=== PATIENT | female | born 1925 | race Caucasian/White ===

== ENCOUNTER 2016-05-04 09:41 | Inpatient (IN) ==
[2016-05-04 10:48] LABS: Mean Cell Volume 92.5 fL (80.0-100.0); Mean Corpuscular HGB Conc 32.8 g/dL (31.0-36.0); Mean Corpuscular Hemoglobin 30.3 pg (26.0-34.0); Platelet Count 136 K/mcL (140-440); RBC 2.95 M/mcL (4.00-5.20)
--- NOTE | 2016-05-04 11:01 | Emergency Department Note ---
Weakness HPI - General Chief complaint: Weakness Stated complaint: swelling, increase wt gain Time Seen by Provider: 05/04/16 09:53 Source: patient Mode of arrival: wheelchair Limitations: no limitations - History of Present Illness HPI Narrative: 89-year-old female with a history of CHF and treated outpatient by Dr. Briceño , with failed treatment. Patient continued having increased weight gain and weakness. He has a history of aortic stenosis with valve replacement in 2009. History of stage III, Ckd, atrial fibrillation and was on Coumadin. The INR 1 [id number]. She became anemic. He has switched her to Eliquis, that medication was also stopped after putting in a PICC line. s He had been given IV Lasix and Zaroxolyn by Dr. Briceño. He has felt now that she is off her Coumadin and Eliquis that this would be a good time to do a poor oh effusion tap. Admitted, and followed by an echo. The Key[facility]'s phone report over to me.Patient states she's been having increased weakness over the past 2 weeks. - Related Data Home Medications Medication Instructions Recorded Confirmed Carvedilol [Coreg] 6.75 mg PO HS 03/23/16 05/04/16 Febuxostat [Uloric] 40 mg PO DAILY 03/23/16 05/04/16 Omeprazole 20 mg PO DAILY 03/23/16 05/04/16 Spironolactone [Aldactone] 50 mg PO DAILY 03/23/16 05/04/16 Colchicine [Colcrys] 0.6 mg PO DAILY PRN 04/30/16 05/04/16 Ferrous Sulfate [Iron] 325 mg PO BID 04/30/16 05/04/16 Levothyroxine [Synthroid] 50 mcg PO DAILY 04/30/16 05/04/16 Magnesium Oxide [Magnesium] 250 mg PO WEEKLY 04/30/16 05/04/16 Potassium Citrate [Urocit-K] 2.5 meq PO DAILY 04/30/16 05/04/16 Vitamin D3 1,000 unit PO DAILY 04/30/16 05/04/16 Cyanocobalamin (Vitamin B-12) 1,000 mcg PO DAILY 05/04/16 05/04/16 [Vitamin B12] Metolazone [Zaroxolyn] 2.5 mg PO DAILY 05/04/16 05/04/16 Previous Rx's Medication Instructions Recorded HYDROcodone/APAP 5/325MG [[place] 1 tab PO Q4HP PRN #14 tablet 03/23/16 5/325Mg] Allergies Allergy/AdvReac Type Severity Reaction Status Date / Time fentanyl Allergy Intermediate Rash Verified 05/04/16 19:56 Sulfa (Sulfonamide Allergy Intermediate Hives Verified 05/04/16 19:56 Antibiotics) meperidine [From Demerol] AdvReac Intermediate Hives Verified 04/30/16 16:37 Review of Systems All systems ED: reviewed and negative except as stated. Constitutional: Denies: fever Eyes: Denies: eye pain ENT ED: Denies: ear pain Cardiovascular: Denies: chest pain, palpitations, dyspnea on exertion Respiratory: Denies: cough, dyspnea Gastrointestinal: Denies: abdominal pain Genitourinary: Denies: urgency, dysuria Musculoskeletal: Denies: as per HPI Integumentary: Denies: rash Neurological: Denies: headache Psychiatric: Denies: anxiety Endocrine: Denies: fatigue Hematological/Lymphatic: Denies: easy bleeding Allergic/Immunologic: Denies: facial swelling Past Medical History - Past Medical History Medical history: Reports: atrial fibrillation, hypertension, valvular heart disease, other (maynor' esophagus, artery stenosis, diverticulitis hyperlipidemia) Surgical history ED: Reports: appendectomy, , cholecystectomy, hysterectomy, other (valve replacement) Family history: Reports: cancer (mother lung), CVA/Stroke - Social History smoking status: Never smoker Alcohol use: Reports: None Drug use: Reports: none Physical Exam - General Limitations: no limitations General appearance: alert - Head Head exam: atraumatic - Eye Eye exam: Present: normal appearance, PERRL - ENT ENT exam: normal exam, normal oropharynx - Neck Neck exam: Present: normal inspection, full ROM. Absent: trachea midline - Chest Chest inspection: Present: normal inspection. Absent: symmetric chest wall rise - Respiratory Respiratory exam: Present: normal lung sounds bilaterally. Absent: respiratory distress, wheezes - Cardiovascular Cardiovascular exam: Present: regular rate. Absent: normal rhythm, bradycardia , tachycardia - Abdominal Exam Abdominal exam: Present: soft. Absent: distention, tenderness - Extremities Exam Extremities exam: Present: normal inspection. Absent: full ROM - Back Exam Back exam: Present: normal inspection. Absent: full ROM - Neurological Exam Neurological exam: Present: alert, oriented X3 - Psychiatric Psychiatric exam: Present: normal affect, normal mood - Skin Skin exam: Present: warm Course Vital Signs Temperature 97.6 F 05/04/16 09:45 Pulse Rate 80 05/04/16 09:45 Respiratory Rate 16 05/04/16 09:45 Blood Pressure 116/60 05/04/16 09:45 Pulse Oximetry (%) 96 05/04/16 09:45 Temperature 97.5 F L 05/04/16 19:45 Pulse Rate 84 05/04/16 18:47 Respiratory Rate 20 05/04/16 19:45 Blood Pressure 126/74 05/04/16 19:45 Pulse Oximetry (%) 96 05/04/16 19:45 Weakness - Lab Data Result diagrams: 05/04/16 10:02 05/04/16 19:53 Lab Results 05/04/16 05/04/16 05/04/16 Range/Units 10:02 10:02 10:02 WBC 6.0 (4.5-11.0) K/mcL RBC 2.95 L (4.00-5.20) M/mcL Hgb 8.9 L (12.0-15.0) g/dL Hct 27.3 L (36.0-48.0) % POC Hct 30.0 L (36.0-48.0) % MCV 92.5 (80.0-100.0) fL MCH 30.3 (26.0-34.0) pg MCHC 32.8 (31.0-36.0) g/dL RDW 14.0 (11.5-14.5) % Plt Count 136 L (140-440) K/mcL MPV 10.6 H (7.4-10.4) fL Total Counted 100 Seg Neutrophils % 80 H (38-78) % Band Neutrophils % 1 (0-10) % Lymphocytes % 6 L (15-49) % Monocytes % (Manual) 12 H (1-9) % Eosinophils % (Manual) 1 (0-7) % Platelet Estimate Decreased (NORMAL) RBC Morphology Normal (NORMAL) POC PT 13.1 sec POC INR 1.1 (0.9-1.2) POC Sodium 138 (133-145) mmol/L POC Potassium 4.4 (3.3-5.1) mmol/L POC Chloride 94 L (96-108) mmol/L POC Total CO2 30 (22-30) mmol/L POC BUN 66 H (8-23) mg/dl POC Creatinine 2.7 H (0.6-1.1) mg/dl POC Glucose 122 H (70-105) mg/dL POC WB Ioniz Calcium 1.09 L (1.16-1.32) mmol/L Total Creatine Kinase (24-170) IU/L CK-MB (CK-2) (0-2.9) ng/ml Myoglobin (25-58) ng/ml Troponin T (0-0.03) ng/ml NT-Pro-B Natriuret Pep 22794.0 H (0-450) pg/ml 05/04/16 05/04/16 05/04/16 Range/Units 10:02 10:02 16:15 WBC (4.5-11.0) K/mcL RBC (4.00-5.20) M/mcL Hgb (12.0-15.0) g/dL Hct (36.0-48.0) % POC Hct (36.0-48.0) % MCV (80.0-100.0) fL MCH (26.0-34.0) pg MCHC (31.0-36.0) g/dL RDW (11.5-14.5) % Plt Count (140-440) K/mcL MPV (7.4-10.4) fL Total Counted Seg Neutrophils % (38-78) % Band Neutrophils % (0-10) % Lymphocytes % (15-49) % Monocytes % (Manual) (1-9) % Eosinophils % (Manual) (0-7) % Platelet Estimate (NORMAL) RBC Morphology (NORMAL) POC PT sec POC INR (0.9-1.2) POC Sodium (133-145) mmol/L POC Potassium (3.3-5.1) mmol/L POC Chloride (96-108) mmol/L POC Total CO2 (22-30) mmol/L POC BUN (8-23) mg/dl POC Creatinine (0.6-1.1) mg/dl POC Glucose (70-105) mg/dL POC WB Ioniz Calcium (1.16-1.32) mmol/L Total Creatine Kinase 86 (24-170) IU/L CK-MB (CK-2) 3.5 H (0-2.9) ng/ml Myoglobin 257 H (25-58) ng/ml Troponin T 0.04 H* 0.04 H* (0-0.03) ng/ml NT-Pro-B Natriuret Pep (0-450) pg/ml Disposition Clinical Impression: Pleural effusion, CHF (congestive heart failure) Disposition: Xfer As Inpt ([facility]) Condition: Fair
[2016-05-04 11:10] LABS: Creatine Kinase MB 3.5 ng/ml (0-2.9); Myoglobin 257 ng/ml (25-58)
[2016-05-04 11:12] LABS: Creatine Kinase 86 IU/L (24-170)
[2016-05-04] MEDS ORDERED: FUROSEMIDE 250 MG in 0.9 % SODIUM CHLORIDE 225 ML IV SCH (11:15)
[2016-05-04 11:16] LABS: Band Neutrophils % 1 % (0-10); Eosinophils % (Manual) 1 % (0-7); Lymphocytes % 6 % (15-49); Monocytes % (Manual) 12 % (1-9); Platelet Estimate DECREASED (NORMAL); RBC Morphology NORMAL (NORMAL); Segmented Neutrophils % 80 % (38-78)
--- NOTE | 2016-05-04 12:39 | XRay Report ---
CLINICAL INFORMATION: Shortness of breath - pleural effusion COMPARISON: 04/30/2016. FINDINGS: Marked cardiomegaly is unchanged. Mediastinum is unremarkable. Right PICC line tip overlies the SVC right atrial junction in stable satisfactory position. Mediastinum is normal. Pulmonary vessels are now mildly distended and there is minimal diffuse interstitial edema. No infiltrates. Minor bibasilar atelectasis noted. Moderate right pleural effusion has developed. There is only a small left pleural effusion IMPRESSION: 1. Mild CHF 2. Moderate right pleural effusion. Small left pleural effusion Interpreted and Authenticated by: Murphy Turpin 05/04/16
--- NOTE | 2016-05-04 15:54 | XRay Report ---
CLINICAL INFORMATION: Post right thoracentesis COMPARISON: Preprocedure two-view chest x-ray to 2016 1048 hours. FINDINGS: Moderate cardiomegaly is unchanged. Mediastinum is unremarkable. Pulmonary vessels have returned to normal and there is residual edema is no longer identified. Right pleural effusion is no longer apparent following thoracentesis. There is no pneumothorax or other complication. Lungs are clear IMPRESSION: Interval resolution CHF No residual right pleural effusion following thoracentesis. No complication Interpreted and Authenticated by: Murphy Turpin 05/04/16
--- NOTE | 2016-05-04 15:56 | Ultrasound Report ---
CLINICAL INFORMATION: Moderate size right pleural effusion TECHNIQUE: The procedure and risks including possibility of bleeding, infection and pneumothorax were explained to the patient. She understood and wished to proceed. With the patient in upright position, right pleural effusion was sonographically localized at the posterior right 10th intercostal space - posterior axillary line. The skin was marked, prepped and locally anesthetized the level the the parietal pleura using 1% lidocaine and a 25-gauge needle. An 18-gauge Yueh needle was then placed under sonographic guidance into the fluid. 750 cc of transudative pleural fluid was aspirated and discarded. No request for lab studies was received. Post procedure scanning shows only no residual pleural fluid. IMPRESSION: Successful right thoracentesis yielding 750 cc of simple appearing transudative pleural fluid. Postprocedure scanning shows no residual fluid. Patient tolerated procedure well Interpreted and Authenticated by: Murphy Turpin 05/04/16
--- NOTE | 2016-05-04 19:34 | Internal Med History&Physical ---
Medical - H&P: HPI Patient information: Note initiated : 05/04/16 at 7:28 pm Service Date, if different from initiated Date: [] Patient: Corrina Arce a 89 y/o F admitted on for swelling, increase wt gain. Chief Complaint: [] History of present illness: Ms. Arce is a 89 year old female with multiple medical comorbidites presents to the ER today from Dr Mary green for evaluation and treatment of generalized anasarca after failed outpatient treatment. I reviwed the note by Dr Hernandez, the patient notes that she has h/o intermittent anasarca, which responded to diuretics in the past. The patient notes that this episode started around [place], when she fell and had a vertebral fracture. The patients baseline weight is 172 lbs, and she has been progressively gaining weight, associated with edema, shortness of breath on exertion, and PND. The patient was treated with oral diuretics which did not help much. The patient. The patient has a baseline creat of approx 2.7, which seems to have remained stable, The initial plan it seems was to admit the patient to the [facility] hospital at the begining of the month, however due to lack of beds the patient had PICC line placed and IV lasix given. The patient it seems did not respond well to the lasix, and therefore was sent to [facility] ER for further management. In the ER she had right pleural effusion, which was drained by Radiology with good effect. The patient at presents feels better, but still has significant fatigue, edema. Denies any chest pain, palpitation, nausea or vomiting. The labs in the ER reviwed, anemia noted, creat of 2.6, electrolytes otherwise stable, EKG with IC RBBB, low voltage. Mild bump in trop to 0.04 x 2 stable, she has h/o clean coronaries in 2009 Echo last done in 2012, shows avr (procine) moderate to severe MR. I am not sure if she follows with a redevelopment manager, She was placed on the lasix drip in the ER. Pt has chr afib, not on anticoagulatino due to the fact that she bled from the picc line, will resume her anticoagulation as now the picc line site is clean. Will start first dose tomorrow, given recent procedure. - Constitutional Constitutional: Present: fatigue, weakness. Absent: fever(s) - EENT Eyes: Absent: blurry vision, change in vision Nose, mouth and throat: Absent: bleeding gums, disequilibrium, dizziness - Cardiovascular Cardiovascular: Present: dyspnea on exertion, irregular heart rhythm, leg edema , orthopnea, paroxysmal nocturnal dyspnea. Absent: chest pain, chest pain at rest, lightheadedness, palpatations, syncope - Respiratory Respiratory: Present: dyspnea, dyspnea on exertion. Absent: wheezing, chest congestion, excessive phlegm production - Gastrointestinal Gastrointestinal: Absent: abdominal pain, diarrhea, dyspepsia, dysphagia, hematemesis, hematochezia, melena, nausea, vomiting - Genitourinary Genitourinary: Present: urinary frequency. Absent: hematuria, urinary hesitancy , urinary incontinence, urinary urgency - Musculoskeletal Musculoskeletal: Present: arthralgias - Integumentary Integumentary: Present: bleeding lesions, unusual bruising. Absent: new lesions - Neurological Neurological: Absent: focal weakness, frequent falls, headache(s), syncope - Psychiatric Psychiatric: Absent: anxiety, confusion - Endocrine Endocrine: Absent: polydipsia, polyphagia, polyuria - Hematologic/Lymphatic Hematologic/Lymphatic: Present: easy bleeding, easy bruising - Allergic/Immunologic Allergic/Immunologic: Absent: uticaria, wheezing Medical - H&P: PMH Medical history: Aortic stenosis s/p repair CHF Mitral reguritation Cirrhosis etiology? Portal hypertension CKD baseline creat 2.6 barrets esophagus carotid artery stenosis hld h/o TIA h/o Pulmonary hypertension Surgical history: h/o back surgery c section chlolecystectomy knee and shoulder s yrgery vaginal hystrectomy. Family history: reviewed and not pertinent Social history: non smoker, no etoh, recreational drugs lives by self, independent at baseline. Medical - H&P: Meds Home Medications Medication Instructions Recorded Confirmed Type Carvedilol [Coreg] 6.75 mg PO HS 03/23/16 05/04/16 History Febuxostat [Uloric] 40 mg PO DAILY 03/23/16 05/04/16 History Omeprazole 20 mg PO DAILY 03/23/16 05/04/16 History Spironolactone [Aldactone] 50 mg PO DAILY 03/23/16 05/04/16 History Colchicine [Colcrys] 0.6 mg PO DAILY PRN 04/30/16 05/04/16 History Ferrous Sulfate [Iron] 325 mg PO BID 04/30/16 05/04/16 History Levothyroxine [Synthroid] 50 mcg PO DAILY 04/30/16 05/04/16 History Magnesium Oxide [Magnesium] 250 mg PO WEEKLY 04/30/16 05/04/16 History Potassium Citrate [Urocit-K] 2.5 meq PO DAILY 04/30/16 05/04/16 History Vitamin D3 1,000 unit PO DAILY 04/30/16 05/04/16 History Cyanocobalamin (Vitamin B-12) 1,000 mcg PO DAILY 05/04/16 05/04/16 History [Vitamin B12] Metolazone [Zaroxolyn] 2.5 mg PO DAILY 05/04/16 05/04/16 History Allergies Allergy/AdvReac Type Severity Reaction Status Date / Time fentanyl Allergy Rash Verified 04/30/16 16:37 meperidine [From Demerol] AdvReac Intermediate Hives Verified 04/30/16 16:37 Sulfa (Sulfonamide AdvReac Hives Verified 04/30/16 16:37 Antibiotics) Medical - H&P: Exam - Constitutional Vitals: Temp Pulse Resp BP Pulse Ox 97.6 F 84 21 113/56 96 05/04/16 09:45 05/04/16 18:47 05/04/16 18:47 05/04/16 18:47 05/04/16 18:47 General appearance: no acute distress, obese - Head Head exam: Present: atraumatic, normal inspection, normocephalic - Eye Eye exam: Present: PERRL. Absent: periorbital swelling, periorbital tenderness , scleral icterus - ENT ENT exam: Present: mucous membranes moist, normal external ear exam - Neck Neck exam: Present: normal inspection - Respiratory Respiratory exam: Present: normal respiratory exam. Absent: accessory muscle use, respiratory distress, rhonchi, stridor, wheezes - Cardiovascular Cardiovascular exam: Present: irregular rhythm, +S1, +S2, systolic murmur - GI/Abdominal GI/Abdominal exam: Present: normal bowel sounds, soft, distended. Absent: guarding, tenderness - Expanded GI/Abdominal Exam GI/Abdominal exam: Present: ascites - Extremities Exam Extremities exam: Present: pedal edema (++++ upto hips and above.) - Back Exam Back exam: Present: normal inspection - Neurological Exam Neurological exam: Present: alert, CN II-XII intact, oriented X3. Absent: motor sensory deficit - Psychiatric Psychiatric exam: Present: normal affect, normal mood Medical - H&P: Reslt - Labs CBC & Chem 7: 05/04/16 10:02 Labs: Short CBC 05/04/16 Range/Units 10:02 WBC 6.0 (4.5-11.0) K/mcL Hgb 8.9 L (12.0-15.0) g/dL Hct 27.3 L (36.0-48.0) % Plt Count 136 L (140-440) K/mcL Cardiac Enzymes 05/04/16 05/04/16 05/04/16 Range/Units 10:02 10:02 16:15 Total Creatine Kinase 86 (24-170) IU/L CK-MB (CK-2) 3.5 H (0-2.9) ng/ml Troponin T 0.04 H* 0.04 H* (0-0.03) ng/ml Medical - H&P: A/P (1) Anasarca associated with disorder of kidney Current visit: Yes Status: Acute (2) Systolic congestive heart failure Current visit: Yes Status: Acute (3) Cirrhosis Current visit: Yes Status: Acute (4) Pulmonary hypertension Current visit: Yes Status: Acute (5) Anemia Current visit: Yes Status: Acute (6) Chronic kidney disease (CKD) Current visit: Yes Status: Acute (7) Atrial fibrillation Current visit: Yes Status: Acute - Narrative A/P Narrative: The patient presents today with anasarca, which is multifactorial in origin. At present seems cardiac in light of elevated bnp, but renal/ liver origin and secondary to pulmonary htn cannot be ruled out IV lasix 80mg TID, no need for lasix drip, given that the drip itself also has significant fluids and is given in normal saline. consider increasing dose of Lasix if needed. will use metolazone in conjunction with lasix if needed. Strict i/o monitoring, fluid restriction to 1500ml per day daily weight on Aldactone 50mg qd consider increasing aldactone to 100mg if hepatic origin suspected get tsh, echo, abdominal usg consider nephrology eval if renal function worsens or the patient does not respond to diuretics, not sure if the patient already has a redevelopment manager. resume coreg and eliquis for afib / chf, given that she is high risk for cva given her history of tia in the past. The patients troponin seems to be due to chf/ renal failure. no ekg chnages suggestive of NC nor does the patient have chest pain. monitor. DVT prophylaxis eliquis Diet low salt diet.
[2016-05-04] MEDS ORDERED: COLCHICINE 0.6 MG TABLET PO PRN (19:45)
[2016-05-04] MEDS ORDERED: HYDROcodone/APAP 5/325MG TABLET PO PRN (19:45)
[2016-05-04] MEDS ORDERED: ACETAMINOPHEN 325 MG TABLET PO PRN (19:45)
[2016-05-04] MEDS ORDERED: IPRATROPIUM/ALBUTEROL 3 ML AMPUL.NEB NEB PRN (19:45)
[2016-05-04] MEDS ORDERED: ONDANSETRON 4 MG/2 ML VIAL IV PRN (19:45)
[2016-05-04] MEDS ORDERED: BISACODYL 5 MG TABLET PO PRN (19:45)
[2016-05-04] MEDS ORDERED: NALOXONE HCL 0.4 MG/ML VIAL IV PRN (19:45)
[2016-05-04] MEDS ORDERED: CARVEDILOL 6.25 MG TABLET PO SCH (21:00)
[2016-05-04 21:25] LABS: Appearance,Urine HAZY; Bacteria,Urine 0 /hpf (0); Bilirubin,Urine NEG (NEG); Color,Urine YELLOW; Glucose,Urine (UA) NEGATIVE (NEG); Leukocyte Esterase,Urine 75 /uL (NEG); Mucus,Urine FEW /hpf (0); Nitrate,Urine NEG (NEG); Protein,Urine NEG (NEG); Urine Amorphous Crystals FEW /hpf (0); Urine Blood >=1.0 mg/dL (<0.03); Urine Hyaline Cast 20 /lpf (0-2); Urine RBC > 182 /hpf (0-1); Urine Squamous Epithelial Cell < 1 /hpf (0-4); Urine Transitional Epi Cells < 1 /hpf (0-2); Urine WBC 9 /hpf (0-4); Urobilinogen,Urine NEG (NEG)
[2016-05-04 21:27] LABS: Basophils # (Auto) 0 K/mcL (0.0-0.3); Basophils % (Auto) 0.3 % (0.0-2.0); Eosinophils # (Auto) 0.2 K/mcL (0.0-0.7); Eosinophils % (Auto) 2.4 % (0.0-7.0); Granulocytes % (Auto) 79.3 % (38.0-78.0); Lymphocytes # (Auto) 0.5 K/mcL (1.5-4.8); Lymphocytes % (Auto) 7.1 % (15.5-49.0); Mean Cell Volume 90.8 fL (80.0-100.0); Mean Corpuscular HGB Conc 34.1 g/dL (31.0-36.0); Monocytes # (Auto) 0.7 K/mcL (0.1-0.9); Monocytes % (Auto) 10.9 % (1.0-9.0); Platelet Count 119 K/mcL (140-440); RBC 2.93 M/mcL (4.00-5.20); Red Cell Distribution Width 13.5 % (11.5-14.5)
[2016-05-04 21:56] LABS: ALT/SGPT 11 U/l (0-40); Albumin 3.6 gm/dL (3.2-5.2); Albumin/Globulin Ratio 1.3 (1.0-2.3); Alkaline Phosphatase 73 U/L (39-117); Bilirubin,Direct 0.2 mg/dL (0.0-0.3); Blood Urea Nitrogen 67 mg/dl (8-23); Gamma Glutamyl Transpeptidase 16 U/L (5-36); Magnesium 2.9 mg/dL (1.6-2.5); Phosphorous 4.5 mg/dL (2.7-4.5); Uric Acid 11.6 mg/dL (2.5-8.0)
[2016-05-04] MEDS: FUROSEMIDE 100 MG/10 ML VIAL IV SCH (23:53)
[2016-05-05] MEDS: FUROSEMIDE 100 MG/10 ML VIAL IV SCH ×3 (06:19→21:02)
[2016-05-05 07:29] LABS: Basophils # (Auto) 0 K/mcL (0.0-0.3); Basophils % (Auto) 0.2 % (0.0-2.0); Eosinophils # (Auto) 0.2 K/mcL (0.0-0.7); Eosinophils % (Auto) 2.5 % (0.0-7.0); Granulocytes % (Auto) 81.2 % (38.0-78.0); Lymphocytes # (Auto) 0.4 K/mcL (1.5-4.8); Lymphocytes % (Auto) 6.4 % (15.5-49.0); Mean Cell Volume 93.8 fL (80.0-100.0); Mean Corpuscular HGB Conc 31.2 g/dL (31.0-36.0); Mean Corpuscular Hemoglobin 29.2 pg (26.0-34.0); Monocytes # (Auto) 0.6 K/mcL (0.1-0.9); Monocytes % (Auto) 9.7 % (1.0-9.0); Platelet Count 136 K/mcL (140-440); Red Cell Distribution Width 14.9 % (11.5-14.5)
[2016-05-05] MEDS: PANTOPRAZOLE 40 MG VIAL IV SCH (07:58)
[2016-05-05] MEDS: LEVOTHYROXINE 50 MCG TABLET PO SCH (07:58)
[2016-05-05 08:17] LABS: ALT/SGPT 11 U/l (0-40); Albumin 3.6 gm/dL (3.2-5.2); Albumin/Globulin Ratio 1.3 (1.0-2.3); Alkaline Phosphatase 77 U/L (39-117); Bilirubin,Direct 0.2 mg/dL (0.0-0.3); Blood Urea Nitrogen 69 mg/dl (8-23); Gamma Glutamyl Transpeptidase 15 U/L (5-36); Magnesium 2.8 mg/dL (1.6-2.5); Uric Acid 11.5 mg/dL (2.5-8.0)
[2016-05-05] MEDS: FERROUS SULFATE 325 MG TABLET PO SCH ×2 (08:20→17:22)
--- NOTE | 2016-05-05 08:48 | Echocardiogram Report ---
ECHOCARDIOGRAM: 2-D and M-mode echocardiography with cardiac Doppler and color flow imaging were performed with a [employer]osEndomedixa Aplio MX. Indication is anasarca and congestive heart failure. The right chambers and the LA appeared moderately enlarged. LV cavity size appeared normal to small. LV wall thickness appeared mildly to moderately increased. Septal motion appeared dyssynergic as can be seen following open heart surgery and in RV pressure overload. LV systolic performance otherwise appeared normal. Estimated ejection fraction is 60%. Aortic root diameter appeared normal. A well-seated porcine tissue prosthesis (not further identified) was in the aortic position. Some prosthetic leaflet mobility was appreciated. Maximal instantaneous prosthetic aortic outflow systolic gradient as obtained from the apex and as calculated by the modified Bernoulli equation was 35 mmHg. Mean gradient was 21 mmHg. Valve area as calculated by the continuity equation was 0.7 cm2 and area index was 0.4 cm2 per meter square, probably an overestimation of severity. There was no evidence for periprosthetic or transvalvular aortic regurgitation. The mitral leaflet motion appeared mildly stiff as can be seen following repair. Doppler interrogation of LV inflow disclosed a monophasic spectral dispersion pattern related absent AV synchrony. Mitral regurgitation, probably moderate (2+), was noted. Pulmonary venous interrogation disclosed ''d'' wave dominance indicating elevated pulmonary wedge pressure. The pulmonic valve showed absent \\"a'' wave in the absence of AV synchrony. Pulmonary artery acceleration time appeared shortened. There was no evidence for pulmonic stenosis. Pulmonic regurgitation, probably mild (1+2) and tricuspid regurgitation, probably moderately severe (3+), were noted. No intracardiac shunting was appreciated. There was no evidence for pericardial effusion. The IVC was dilated and did not vary with the respiratory cycle indicating raised the CVP. Calculated estimated PA systolic pressure is moderately elevated at 55 mmHg. Atrial fibrillation with a moderate response was present. CONCLUSIONTissue prosthesis, aortic position, moderately \\"stenotic''. Mild to moderate concentric LVH with septal dyssynergy and overall normal systolic performance. Stiff mitral leaflet motion as can be seen following repair with mitral regurgitation, probably moderate (2+), moderate LA enlargement, and elevated pulmonary wedge pressure. Moderate pulmonary hypertension with RV pressure overload and raised CVP. Since previous study 08/12/2012, prosthetic aortic area index calculates slightly smaller and findings supporting right heart failure are better appreciated. (See accompanying M-mode and Doppler reports for quantitation.) ECHOCARDIOGRAPHY M-MODE CALCULATIONS: HT: 63 WT: 199 BSA: 1.93 m2 NORMALS AORTA: AORTIC ROOT 2.8 2.0-3.7 cm LEFT ATRIUM 5.4 1.9-4.0 cm MITRAL VALVE: EXCURSION 2.2 1.9-2.7 cm EPSS 0.1 <0.5 cm LT VENTRICLE: LVID (ED) 4.0 3.5-5.7 cm LVID (ES) 2.2 SEPTAL THICKNESS 1.3 0.6-1.1 cm SEPTAL EXCURSION 0.2 0.3-0.8 cm LVPW THICKNESS 1.3 0.6-1.1 cm LVPW EXCURSION 1.2 0.9-1.4 cm MINOR AXIS FS 4.5 25%-40% RT VENTRICLE: RVID (ED) 2.2 0.9-2.6 cm(up to 3cm if LLD) QUALITATIVE DOPPLER FLOW STUDIES MITRAL VALVE MR, probably moderate (2+). AORTIC VALVE Tissue prosthesis at least moderately stenotic. TRICUSPID VALVE TR, probably moderately severe (3+) PULMONIC VALVE NH, probably mild (1+) QUANTITATIVE DOPPLER FLOW STUDIES SAMPLE SITES VELOCITIES PEAK PRESSURE VALVE AREA and/or VALVE WINDOW (PEAK,M/SEC) DROP (GRADIENT) PRESSURE HALF-TIME MV (Diastole) 1.1 -- -- MV (Systole) 4.4 -- -- AO (Diastole) -- -- -- AO (Systole) 3.0 35 mmHg; 21 mmHg (mean); 0.7 cm2, 0.4 cm2/m2 TV (Systole) 2.8 -- -- PV (Systole) 1.0 -- -- PV (Diastole) 1.8 COLIN:shiela Job ID: [id number] Doc ID: [id number] Saulo Naqvi MD
[2016-05-05] MEDS ORDERED: APIXABAN 5 MG TABLET PO SCH ×2 (09:00→21:00)
[2016-05-05] MEDS ORDERED: SPIRONOLACTONE 25 MG TABLET PO SCH (09:00)
--- NOTE | 2016-05-05 09:01 | Ultrasound Report ---
CLINICAL INFORMATION: Cirrhosis ascites and renal failure. Abdominal pain COMPARISON: None. FINDINGS: Liver is hyperechoic and inhomogeneous with irregular cortical surface compatible with known cirrhosis. No focal lesions. The gallbladder is surgically absent. Common bile duct and pancreas are not visualized. Both kidneys are atrophic and hyperechoic: The right is 7.7 x 5.8 cm and the left is 8.5 x 5 cm. Spleen is unremarkable. Aorta and IVC are normal. Small amount of ascites appreciated IMPRESSION: 1. Diminutive, inhomogeneous irregular liver compatible with clinical diagnosis of cirrhosis. No focal hepatic lesions. Small amount of ascites 2. Moderate bilateral renal atrophy compatible with chronic renal failure. 3. The common bile duct, pancreas and aorta were not visualized. Suboptimal exam due to patient habitus and inability to cooperate. Interpreted and Authenticated by: Murphy Turpin 05/05/16
--- NOTE | 2016-05-05 10:53 | Ultrasound Report ---
CLINICAL INFORMATION: Ascites COMPARISON: None. TECHNIQUE: The procedure and risks including possibility of bleeding, infection and bowel perforation were explained to the patient. She understood and wished to proceed. The fluid was ultrasound wood preparation supervisor localized in the right midabdomen in the subhepatic region. The skin in this region was marked, prepped and locally anesthetized with 1% lidocaine to the level the peritoneum using a 25-gauge needle. An 18-gauge Yueh needle was advanced into the peritoneal cavity under sonographic guidance. 2.8 L of simple appearing ascites was aspirated. No request for concomitant IV albumin administration was given. Post procedure scanning shows no residual fluid. IMPRESSION: Successful ultrasound-guided paracentesis only 2.8 L of simple appearing ascites. No apparent complication. Interpreted and Authenticated by: Murphy Turpin 05/05/16
[2016-05-05 10:55] LABS: Creatinine,Urine Random 82.4 mg/dl
[2016-05-05 12:17] LABS: Neutrophils,Peritoneal Fluid 8 %
[2016-05-05 12:22] LABS: Nucleated Cel,Peritoneal Fluid 513 /cumm; RBC,Peritoneal Fluid < 50000 /cumm
--- NOTE | 2016-05-05 12:52 | Internal Med Progress Note ---
Medical - PN: Subj Patient information: Note initiated : 05/05/16 at 12:49 pm Service Date, if different from initiated Date: [] Patient: Corrina Arce 89 y/o F admitted on 05/04/16 for Swelling, Increase Wt Gain/Anasarca, CHF. Chief Complaint: [] Interval history: The patient seen examined this AM sitting in the chair. She notes that the distention of the abdomen is discomforting. The patient denies any other symptoms. She did not respond very well to IV lasix 80mg, approx 180-200 c c of Urine output per IV injection. Patient had ascitic tap later today with 2.8L fluids removal. appears to be trasudative, fluid albumin pending. Echo reviewed, moderate , lvh, moderate MR and moderate lae, moderate pulm HTN , elevated wedge pressures and dialated IVC> USG abdomen shows cirrhotic liver, atrophic kidneys adn ascitis, Pertinent ROS: Denies headache, dizziness Denies chest pain, palpitations Denies cough, sob on exertion present. Denies abdominal pain, nausea or vomiting. - Constitutional Vitals: Vital Signs Temp Pulse Resp BP Pulse Ox 97.6 F 84 20 104/49 98 05/05/16 11:00 05/04/16 22:00 05/05/16 11:00 05/05/16 11:00 05/05/16 11:00 Period Temp Pulse Resp BP Sys/Stovall Pulse Ox Last 24 Hr 97.5 F-98.9 F 84 16-20 96-126/49-74 95-99 Intake and Output 05/04/16 05/05/16 05/05/16 21:59 05:59 13:59 Intake Total 240 / 240 200 / 200 Output Total 500 / 500 270 / 270 Balance -260 / -260 -70 / -70 Weight 197 lb 6.4 oz 197 lb 6.4 oz Intake & Output: Intake & Output 05/04/16 05/05/16 05/05/16 21:59 05:59 13:59 Intake Total 240 / 240 200 / 200 Output Total 500 / 500 270 / 270 Balance -260 / -260 -70 / -70 Weight 197 lb 6.4 oz 197 lb 6.4 oz Intake: Oral 240 / 240 200 / 200 Output: Urine Catheter Amount 500 / 500 270 / 270 Other: Meal Dinner Percent of Meal Consumed 50% Feeding Ability Assist with Tray Set Up Exam: Constitutional; Afebrile, cooperative, alert, not in distress. Eyes- No icterus, Pupils equal, reactive, No periorbital swelling Ears- Ext ear normal, hearing normal to conversation. Neck- Midline trachea, supple Respiratory system: Air Entry equal on both sides, No crackles or wheezing, no rhonchi. CVS- Rate rhythm regular, S1,S2 heard, no gallop, no rub. systolic murmur present Abdomen- Soft nontender abdomen, distended, , DIGITAL IMAGING TECHNICIAN- AOOx3, moving all extremities, no focal deficit noted. Gen edema, predominantly dependent region upto thighs. Medical - PN: Obj Da - Labs CBC & Chem 7: 05/05/16 04:30 05/05/16 04:30 Labs: Abnormal Lab Results 05/05/16 05/05/16 05/05/16 04:30 04:30 04:30 RBC 3.00 L Hgb 8.8 L Hct 28.2 L RDW 14.9 H Plt Count 136 L MPV 10.7 H Gran % 81.2 H Lymph % (Auto) 6.4 L [place] % (Auto) 9.7 H Lymph # 0.4 L PT 16.6 H INR 1.3 H Chloride 94 L Carbon Dioxide 31 H BUN 69 H Creatinine 2.7 H Glucose 108 H Uric Acid 11.5 H Phosphorus 5.0 H Magnesium 2.8 H Urine Occult Blood Ur Leukocyte Esterase Urine RBC Urine WBC Amorphous Crystals Hyaline Casts U [place] Prot/Creat Ratio 05/04/16 05/04/16 05/04/16 20:02 20:02 19:53 RBC Hgb Hct RDW Plt Count MPV Gran % Lymph % (Auto) [place] % (Auto) Lymph # PT INR Chloride 91 L Carbon Dioxide BUN 67 H Creatinine 2.6 H Glucose Uric Acid 11.6 H Phosphorus Magnesium 2.9 H Urine Occult Blood >=1.0 A Ur Leukocyte Esterase 75 A Urine RBC > 182 H Urine WBC 9 H Amorphous Crystals Few A Hyaline Casts 20 H U [place] Prot/Creat Ratio 0.33 H 05/04/16 19:53 RBC 2.93 L Hgb 9.1 L Hct 26.6 L RDW Plt Count 119 L MPV Gran % 79.3 H Lymph % (Auto) 7.1 L [place] % (Auto) 10.9 H Lymph # 0.5 L PT INR Chloride Carbon Dioxide BUN Creatinine Glucose Uric Acid Phosphorus Magnesium Urine Occult Blood Ur Leukocyte Esterase Urine RBC Urine WBC Amorphous Crystals Hyaline Casts U [place] Prot/Creat Ratio Meds: Medications Acetaminophen (Tylenol) 650 mg PO Q6HP PRN PRN Reason: PAIN/FEVER > 101 Last Admin: 05/05/16 02:09 Dose: 325 mg Acetaminophen/Hydrocodone Bitart ([place] 5/325mg) 1 tab PO Q4HP PRN PRN Reason: Pain Albuterol/Ipratropium (Duoneb) 3 ml NEB Q6HRT PRN PRN Reason: Shortness Of Breath Or Wheezing Bisacodyl (Dulcolax) 10 mg PO DAILYP PRN PRN Reason: Constipation Carvedilol (Coreg) 6.25 mg PO HS [facility] Last Admin: 05/04/16 23:53 Dose: 6.25 mg Colchicine (Colcrys) 0.6 mg PO DAILY PRN PRN Reason: gout Ferrous S[facility]) [facility] Last Admin: 05/05/16 08:20 Dose: 325 mg Furosemide (Lasix) 100 mg IV Q8 [facility] Heparin Sodium (Porcine) (Heparin Flush) 2 ml IV QSHIFT [facility] Last Admin: 05/05/16 08:21 Dose: 2 ml Levothy[facility]ine [facility] Last Admin: 05/05/16 07:58 Dose: 50 mcg Metolazone (Zaroxolyn) 5 mg PO BID@0730,1600 [facility] Naloxone HCl (Narcan) 0.1 mg IV Q2MIN PRN PRN Reason: Opiate Reversal Apixaban (Eliquis) 2 (.5 Mg Tab) 1 dose PO BID [facility] Ondansetron HCl (Zofran) 4 mg IV Q4HP PRN PRN Reason: Nausea And Vomiting Pantoprazole Sodium (Protonix) 40 mg IV QAMAC [facility] Last Admin: 05/05/16 07:58 Dose: 40 mg Spironolactone (Aldactone) 50 mg PO DAILY [facility] Last Admin: 05/05/16 08:21 Dose: 50 mg Medical - PN: A/P - Time Spent With Patient Total time spent is greater than 50% in coordination of care (as documented) at patient's floor/unit and/or counseling patient: (1) Anasarca associated with disorder of kidney Status: Acute Current Visit: Yes (2) Systolic congestive heart failure Status: Acute Current Visit: Yes (3) Cirrhosis Status: Acute Current Visit: Yes (4) Pulmonary hypertension Status: Acute Current Visit: Yes (5) Anemia Status: Acute Current Visit: Yes (6) Chronic kidney disease (CKD) Status: Acute Current Visit: Yes (7) Atrial fibrillation Status: Acute Current Visit: Yes - Narrative A/P Narrative: The patient still in fluid overload, dry weight around 173 lbs as per PCP note. Etiology is likely cardiac at this time, given elevated wedge pressures. Patient Pulm HTN appears seconary to cardiac etiology, The patient cirrhosis is noted on usg, etiology? denies any etoh, hepatitis history? cirrohsis from passive congestion? CKD with stable renal function. Patient however has poor response to Diuretics, will consult nephrology to further evaluate nad help with diuresis in thie patient. For now add metolozone 5mg bid 30 mins before lasix injection. Increase dose of lasix to 100mg q 8 hrs ( only 2 lasix injection to be preceded by metolozone) Hb is stable DVT eliquis 2.5mg bid Diet cardiac, fluid restricted, low salt. Medical - PN: Qual - VTE Deep Vein Thrombosis/Pulmonary Embolism Present on Admission: Yes
[2016-05-05] MEDS: METOLAZONE 2.5 MG TABLET PO SCH (15:40)
--- NOTE | 2016-05-05 17:14 | Nephrology Consult Note ---
History of Present Illness - Reason for Consult Patient information: Note initiated : 05/05/16 at 5:08 pm Service Date, if different from initiated Date: [] Patient: Corrina Arce a 89 y/o F admitted on 05/05/16 for Swelling, Increase Wt Gain/Anasarca, CHF. Chief Complaint: [] Consult date: 05/05/16 chronic renal failure Requesting physician: Gemini Blair - Chief Complaint anasarca - History of Present Illness Ms Arce is a 89 y/o pleasant white female with PMH of HTN, CKD, cirrhosis of liver, CHF and other medical issues who is admitted with anasarca Patient states that she has had progressive swelling for the last 2 mths, she was using oral diuretics with suboptimal response. She was advised hospitalisation in early March but there no beds available then, she later had PICC line placed and was receiving IV lasix 80mg at home once a day. But she continued to have worsening of her edema and also started feeling weak, had difficulty ambulating. Given all this she was referred to ED here and was hospitalised Patient since her hospitalisation has had thoracocentesis, ascitic tap and has been receiving lasix 80mg tid He urinary output remains suboptimal She denies CP She denies cough, SOB is better denies using NSAIDS states does not eat excess sodium denies any urinary symptoms Review of Systems All systems PM: reviewed and no additional remarkable complaints except as stated (as in HPI) Past History Past medical history: HTN h/o CHF, H/O AVR and ? 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 h/o cirrhosis of liver states she is unaware of this diagnosis, has not been followed by GI, denies h/o alcohol use anemia Past surgical history: h/o aortic valve replacement and mitral valve repair h/o cholecystectomy h./o C section Past family history: not pertinent Past social history: lives alone, has a daughter who does not live locally fairly independant with ADL no addictions at present Medications and Allergies Home Medications Medication Instructions Recorded Confirmed Type Carvedilol [Coreg] 6.75 mg PO HS 03/23/16 05/04/16 History Febuxostat [Uloric] 40 mg PO DAILY 03/23/16 05/04/16 History Omeprazole 20 mg PO DAILY 03/23/16 05/04/16 History Spironolactone [Aldactone] 50 mg PO DAILY 03/23/16 05/04/16 History Colchicine [Colcrys] 0.6 mg PO DAILY PRN 04/30/16 05/04/16 History Ferrous Sulfate [Iron] 325 mg PO BID 04/30/16 05/04/16 History Levothyroxine [Synthroid] 50 mcg PO DAILY 04/30/16 05/04/16 History Magnesium Oxide [Magnesium] 250 mg PO WEEKLY 04/30/16 05/04/16 History Potassium Citrate [Urocit-K] 2.5 meq PO DAILY 04/30/16 05/04/16 History Vitamin D3 1,000 unit PO DAILY 04/30/16 05/04/16 History Cyanocobalamin (Vitamin B-12) 1,000 mcg PO DAILY 05/04/16 05/04/16 History [Vitamin B12] Metolazone [Zaroxolyn] 2.5 mg PO DAILY 05/04/16 05/04/16 History Allergies Allergy/AdvReac Type Severity Reaction Status Date / Time fentanyl Allergy Intermediate Rash Verified 05/04/16 19:56 Sulfa (Sulfonamide Allergy Intermediate Hives Verified 05/04/16 19:56 Antibiotics) meperidine [From Demerol] AdvReac Intermediate Hives Verified 04/30/16 16:37 Exam - Vital Signs Vital signs: Temp Pulse Resp BP Pulse Ox 98.0 F 84 20 107/64 96 05/05/16 15:45 05/04/16 22:00 05/05/16 15:45 05/05/16 15:45 05/05/16 15:45 - General Appearance General appearance: appears started age, obese EENT: mucous membranes moist Neck: JVD Respiratory: clear Cardiology: mid-systolic murmur, no rub, edema (3+), normal S1, normal S2 Gastrointestinal: no tenderness, no guarding Integumentary: no rash, warm and dry Neurologic: no asterixis, alert and oriented x3 Musculoskeletal: no erythema, no cyanosis Psychiatric: mood/affect appropriate Results - Lab Results 05/05/16 04:30 05/05/16 04:30 Most recent lab results Calcium 9.0 mg/dl (8.6-10.4) 05/05/16 04:30 Phosphorus 5.0 mg/dL (2.7-4.5) H 05/05/16 04:30 Magnesium 2.8 mg/dL (1.6-2.5) H 05/05/16 04:30 Assessment and Plan (1) CKD (chronic kidney disease), stage IV S.Creatinine is 2.7, egfr is 15ml/min per CKD EPI equation this is apparently her baseline s.creatinine UA shows hyaline casts, Fena is less than 1 (0.6) abdominal US shows medical renal disease CKD in the setting of HTN, CHF and cirrhosis of liver she has significant volume overload with 3+ edema, ascites and bilateral pleural effusion so it is likely that her renal function is way less than what it seems She has shown very poor response to lasix 80-mg tid Discussed renal function and challenge with diuresis with the pt We have add metolazone 5mg bid and increased lasix to 100mg tid I will follow the response I will also cut back onspironolactone hope is she responds to this Given her age and multiple medical co morbidities she will be a very poor candidate for dialysis I will try and optimize her diuretics but if we fail to achieve any meaning ful response she wants to give dialysis a try, I have discussed risk and benefit from ermias same with her Anemia: etiology multifactorial, CKD and cirrhosis contributing anasarca as above will follow along Thank you for giving me an opportunity to participate in Ms Arce's medical care, appreciate it Status: Acute
[2016-05-05] MEDS: SPIRONOLACTONE 25 MG TABLET PO SCH (17:43)
[2016-05-05] MEDS ORDERED: ACETAMINOPHEN/DIPHENHYDRAMINE 1 TABLET PO PRN (18:15)
[2016-05-05] MEDS ORDERED: BISACODYL 10 MG SUPP.RECT PR PRN (19:20)
[2016-05-05] MEDS ORDERED: BISACODYL 10 MG SUPP.RECT PR ONE (19:35)
[2016-05-05] MEDS: APIXABAN 2.5 MG PO SCH (21:03)
[2016-05-05] MEDS: CARVEDILOL 3.125 MG TABLET PO SCH (21:05)
[2016-05-05] MEDS ORDERED: ACETAMINOPHEN 500 MG TABLET PO ONE (21:09)
[2016-05-05] MEDS ORDERED: diphenhydrAMINE 25 MG CAPSULE ONE (21:09)
[2016-05-06] MEDS: METOLAZONE 2.5 MG TABLET PO SCH ×3 (05:15→18:33)
[2016-05-06] MEDS: FUROSEMIDE 100 MG/10 ML VIAL IV SCH ×3 (05:35→21:39)
[2016-05-06 06:01] LABS: Basophils # (Auto) 0 K/mcL (0.0-0.3); Basophils % (Auto) 0.1 % (0.0-2.0); Eosinophils # (Auto) 0.2 K/mcL (0.0-0.7); Eosinophils % (Auto) 2.6 % (0.0-7.0); Granulocytes % (Auto) 80.8 % (38.0-78.0); Lymphocytes # (Auto) 0.6 K/mcL (1.5-4.8); Lymphocytes % (Auto) 7.1 % (15.5-49.0); Mean Cell Volume 93.2 fL (80.0-100.0); Mean Corpuscular HGB Conc 31.8 g/dL (31.0-36.0); Mean Corpuscular Hemoglobin 29.6 pg (26.0-34.0); Monocytes # (Auto) 0.8 K/mcL (0.1-0.9); Monocytes % (Auto) 9.4 % (1.0-9.0); Platelet Count 151 K/mcL (140-440); RBC 3.05 M/mcL (4.00-5.20); Red Cell Distribution Width 14.9 % (11.5-14.5)
[2016-05-06 06:32] LABS: ALT/SGPT 9 U/l (0-40); Albumin 3.6 gm/dL (3.2-5.2); Albumin/Globulin Ratio 1.6 (1.0-2.3); Alkaline Phosphatase 71 U/L (39-117); Bilirubin,Direct < 0.2 mg/dL (0.0-0.3); Blood Urea Nitrogen 71 mg/dl (8-23); Gamma Glutamyl Transpeptidase 13 U/L (5-36); Iron 52 mcg/dl (37-145); Magnesium 2.7 mg/dL (1.6-2.5); Phosphorous 4.6 mg/dL (2.7-4.5); Transferrin % Saturation 16 % (15-50); Unsaturated Iron Binding 268 mcg/dL (112-346); Uric Acid 11.3 mg/dL (2.5-8.0)
[2016-05-06 06:57] LABS: Folate 16.8 ng/mL (4.2-19.9); Parathyroid Hormone Intact 237.3 pg/ml (15-65); Vitamin D 25 Hydroxy 39.07 ng/mL (>=30)
[2016-05-06] MEDS: PANTOPRAZOLE 40 MG VIAL IV SCH (09:14)
[2016-05-06] MEDS: LEVOTHYROXINE 50 MCG TABLET PO SCH (09:14)
[2016-05-06] MEDS: SPIRONOLACTONE 25 MG TABLET PO SCH (09:25)
[2016-05-06] MEDS: POLYETHYLENE GLYCOL 3350 17 GM PACKET PO SCH (09:25)
[2016-05-06] MEDS: APIXABAN 2.5 MG PO SCH ×2 (10:09→20:30)
--- NOTE | 2016-05-06 10:14 | Internal Med Progress Note ---
Medical - PN: Subj Patient information: Note initiated : 05/06/16 at 10:11 am Service Date, if different from initiated Date: [] Patient: Corrina Arce a 89 y/o F admitted on 05/05/16 for Swelling, Increase Wt Gain/Anasarca, CHF. Chief Complaint: [] Interval history: 05/04-History of present illness: Ms. Arce is a 89 year old female with multiple medical comorbidites presents to the ER today from [facility] for evaluation and treatment of generalized anasarca after failed outpatient treatment. I reviwed the note by Dr Hernandez, the patient notes that she has h/o intermittent anasarca, which responded to diuretics in the past. The patient notes that this episode started around Seven, when she fell and had a vertebral fracture. The patients baseline weight is 172 lbs, and she has been progressively gaining weight, associated with edema, shortness of breath on exertion, and PND. The patient was treated with oral diuretics which did not help much. The patient. The patient has a baseline creat of approx 2.7, which seems to have remained stable, The initial plan it seems was to admit the patient to the [facility] at the begining of the month, however due to lack of beds the patient had PICC line placed and IV lasix given. The patient it seems did not respond well to the lasix, and therefore was sent to [facility] ER for further management. In the ER she had right pleural effusion, which was drained by Radiology with good effect. The patient at presents feels better, but still has significant fatigue, edema. Denies any chest pain, palpitation, nausea or vomiting. The labs in the ER reviwed, anemia noted, creat of 2.6, electrolytes otherwise stable, EKG with IC RBBB, low voltage. 05/05-nephrology consulted. patient on higher doses of Lasix. Status post thoracentesis/paracentesis. 05/06 patient feeling a lot better. Her appetite is back. Denies active shortness of breath fever chills. No concerns per staff. discussed echo finding with diastolic dysfunction/moderate to severe pulmonary hypertension with pulmonary artery pressure 55. Patient appears to have a poor understanding of her disease process. No family members present for further discussions on goals of care. Echo moderate , concentric LVH the diastolic dysfunction, moderate MR and moderate LAE , US abdomen shows cirrhotic liver/ascites. - Constitutional Vitals: Vital Signs Temp Pulse Resp BP Pulse Ox 98.1 F 91 H 16 92/59 95 05/06/16 04:00 05/06/16 04:00 05/06/16 04:00 05/06/16 04:00 05/06/16 04:00 Period Temp Pulse Resp BP Sys/Stovall Pulse Ox Last 24 Hr 98.0 F-98.4 F 80-96 16-20 92-108/57-66 95-98 Intake and Output 05/05/16 05/06/16 05/06/16 21:59 05:59 13:59 Output Total 400 / 400 580 / 580 Balance -400 / -400 -580 / -580 Weight 197 lb 8 oz Intake & Output: Intake & Output 05/05/16 05/06/16 05/06/16 21:59 05:59 13:59 Output Total 400 / 400 580 / 580 Balance -400 / -400 -580 / -580 Weight 197 lb 8 oz Output: Urine Catheter Amount 400 / 400 580 / 580 Other: # Bowel Movements 2 General appearance: cooperative, no acute distress Exam: 2 + lymphedema bilateral lower extremity No anxiety Minimal shortness of breath nondistended abdomen Medical - PN: Obj Da - Labs CBC & Chem 7: 05/06/16 04:30 05/06/16 04:30 Labs: Abnormal Lab Results 05/06/16 05/06/16 05/06/16 04:30 04:30 04:30 RBC Hgb Hct RDW Gran % Lymph % (Auto) [place] % (Auto) Lymph # Chloride 93 L BUN 71 H Creatinine 2.7 H Glucose 113 H Uric Acid 11.3 H Phosphorus 4.6 H Magnesium 2.7 H Total Protein 5.8 L Vitamin B12 1194 H PTH Intact 237.3 H 05/06/16 04:30 RBC 3.05 L Hgb 9.0 L Hct 28.4 L RDW 14.9 H Gran % 80.8 H Lymph % (Auto) 7.1 L [place] % (Auto) 9.4 H Lymph # 0.6 L Chlor[place] BUN Creatinine Glucose Uric Acid Phosphorus Magnesium Total Protein Vitamin B12 PTH Intact Meds: Medications Acetaminophen (Tylenol) 650 mg PO Q6HP PRN PRN Reason: PAIN/FEVER > 101 Last Admin: 02/07/17 02:09 Dose: 325 mg Acetaminophen/Hydrocodone Bitart ([place] 5/325mg) 1 tab PO Q4HP PRN PRN Reason: Pain Last Admin: 05/05/16 13:55 Dose: 1 tab Albuterol/Ipratropium (Duoneb) 3 ml NEB Q6HRT PRN PRN Reason: Shortness Of Breath Or Wheezing Bisacodyl (Dulcolax) 10 mg PO DAILYP PRN PRN Reason: Constipation Last Admin: 05/05/16 21:02 Dose: 10 mg Bisacodyl (Dulcolax) 10 mg [place] DAILYP PRN PRN Reason: Constipation Carvedilol (Coreg) 3.125 mg PO [facility] Last Admin: 05/05/16 21:05 Dose: 3.125 mg Ferrous Sulfate (Ferrous Sulfate) 325 mg PO BID@1200,1730 [facility] Furosemide (Lasix) 100 mg IV Q8 [facility] Last Admin: 05/06/16 05:35 Dose: 100 mg Heparin Sodium (Porcine) (Heparin Flush) 2 ml IV QSHIFT [facility] Last Admin: 05/06/16 09:25 Dose: 2 ml Levothyroxine Sodium (Synthroid) 50 mcg PO QAMAC [facility] Last Admin: 05/06/16 09:14 Dose: 50 mcg Metolazone (Zaroxolyn) 5 mg PO BID@0530,1330 [facility] Naloxone HCl (Narcan) 0.1 mg IV Q2MIN PRN PRN Reason: Opiate Reversal Apixaban (Eliquis) 2 (.5 Mg Tab) 1 dose PO BID [facility] Last Admin: 05/06/16 10:09 Dose: 1 dose Ondansetron HCl (Zofran) 4 mg IV Q4HP PRN PRN Reason: Nausea And Vomiting Pantoprazole Sodium (Protonix) 40 mg IV QAMAC [facility] Last Admin: 05/06/16 09:14 Dose: 40 mg Phenyltoloxamine Citr/Acetaminophen (Tylenol Pm) 1 tab PO HSP PRN PRN Reason: Insomnia Last Admin: 05/05/16 21:03 Dose: 1 tab Polyethylene Glycol (Miralax) 17 gm PO DAILY [facility] Last Admin: 05/06/16 09:25 Dose: 17 gm Spironolactone (Aldactone) 25 mg PO DAILY [facility] Last Admin: 05/06/16 09:25 Dose: 25 mg Medical - PN: A/P - Time Spent With Patient Total time spent is greater than 50% in coordination of care (as documented) at patient's floor/unit and/or counseling patient: 25 - 35 minutes (1) Anasarca associated with disorder of kidney Status: Acute Assessment and plan: * Anasarca-with pleural effusions/ascites/lymphedema. Status post torn paracentesis. Secondary to pulmonary hypertension/diastolic heart failure/ chronic kidney disease. On high-dose diuretics as per nephrology. 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 on spironolactone/Lasix * History of atrial fibrillation rate controlled On Coreg. anticoagulation on CVA prophylaxis on the Pexeva * history of gout on colchicine * hypothyroidism on thyroxine Plan * Continue diuresis as per nephrology * Patient explained the grim situation in light of C Lauryn/diastolic heart failure/pulmonary hypertension congestive neuropathyleading to anasarca. Diuretics and thoracentesis/paracentesis only a temporary fix and this may recur as soon as she is discharged. Patient however appears to have poor understanding of disease process * Continue pre-existing medical condition on medications as above Current Visit: Yes Medical - PN: Qual - VTE Deep Vein Thrombosis/Pulmonary Embolism Present on Admission: Yes
[2016-05-06] MEDS: FERROUS SULFATE 325 MG TABLET PO SCH ×2 (15:01→17:51)
--- NOTE | 2016-05-06 17:19 | Nephrology Progress Note ---
Subjective Patient information: Note initiated : 05/06/16 at 5:14 pm Service Date, if different from initiated Date: [] Patient: Corrina Arce 89 y/o F admitted on 05/05/16 for Swelling, Increase Wt Gain/Anasarca, CHF. Chief Complaint: [] Principal diagnosis: anasarca Interval history: some improvement in diuresis but needs very high doses, Lasix IV 100mg tid with metolazone 5mg bid Edema is better, no SOB denies CP denies any other overnight events Pertinent ROS: as described above good appetite nouremic symptoms Objective - Vital Signs Vital signs: Vital Signs Temp Pulse Resp BP Pulse Ox 05/06/16 16:00 97.4 F L 20 99/78 97 05/06/16 11:01 97.0 F L 20 111/95 100 05/06/16 08:00 98.1 F 91 H 22 96/60 95 05/06/16 04:00 98.1 F 91 H 16 92/59 95 05/06/16 00:00 98.4 F 96 H 18 108/66 95 05/05/16 20:00 98.4 F 80 20 105/57 98 Intake and Output 05/06/16 05/06/16 05/06/16 05:59 13:59 21:59 Intake Total 240 / 240 Output Total 580 / 580 1000 / 1000 Balance -580 / -580 240 / 240 -1000 / -1000 Intake: Oral 240 / 240 Output: Urine Catheter Amount 580 / 580 1000 / 1000 Other: Meal Breakfast Percent of Meal Consumed 100% Feeding Ability Assist with Tray Set Up # Bowel Movements 2 1 1 Weight 197 lb 8 oz Patient Weight 05/07/16 05:59 Weight 197 lb 8 oz Intake & Output: Intake & Output 05/06/16 05/06/16 05/06/16 05:59 13:59 21:59 Intake Total 240 / 240 Output Total 580 / 580 1000 / 1000 Balance -580 / -580 240 / 240 -1000 / -1000 Weight 197 lb 8 oz Intake: Oral 240 / 240 Output: Urine Catheter Amount 580 / 580 1000 / 1000 Other: Meal Breakfast Percent of Meal Consumed 100% Feeding Ability Assist with Tray Set Up # Bowel Movements 2 1 1 - General Appearance General appearance: appears started age, obese EENT: mucous membranes moist Neck: JVD Respiratory: clear Cardiology: mid-systolic murmur, no rub, edema, normal S1, normal S2 Gastrointestinal: no tenderness, no guarding Integumentary: warm and dry, hyperpigmentation, chronic venous stasis Neurologic: no asterixis, alert and oriented x3 Musculoskeletal: no cyanosis, no clubbing Psychiatric: mood/affect appropriate - Lab 05/06/16 04:30 05/06/16 04:30 Most recent lab results Calcium 8.8 mg/dl (8.6-10.4) 05/06/16 04:30 Phosphorus 4.6 mg/dL (2.7-4.5) H 05/06/16 04:30 Magnesium 2.7 mg/dL (1.6-2.5) H 05/06/16 04:30 Assessment and Plan (1) CKD (chronic kidney disease), stage IV s.creatinine stable at 2.7, Bun is in 70's no uremic symptoms Fluid status improving will not be a good dialysis candidate given age and multiple medical co morbidities including elevated Pul pressures, cirrhosis of liver and fact that she is 89 years old, but she wants to pursue this if needed will try to best manage with medications will continue lasix and metolazone will change to oral diuretics and assess response once fluid status improves further will add phoslo for elevated phosphorus levels She has anemia with low tsat and she is on oral iron supplement, will ct same, cannot initiate karolina until iron replete Hb is stable renal osteodystrophy with elevated PTH and phos as above will start with phos binders CHF/cirrhosis of liver with anasarca with some improvement in fluid status will follow along Thank you for giving me an opportunity to participate in Ms Arce's medical care, appreciate it Status: Acute
[2016-05-06] MEDS: CALCIUM ACETATE 667 MG CAPSULE PO SCH (17:50)
[2016-05-06] MEDS ORDERED: diphenhydrAMINE 25 MG CAPSULE ONE (20:29)
[2016-05-06] MEDS ORDERED: ACETAMINOPHEN 500 MG TABLET PO ONE (20:29)
[2016-05-06] MEDS: CARVEDILOL 3.125 MG TABLET PO SCH (20:30)
[2016-05-07] MEDS: METOLAZONE 2.5 MG TABLET PO SCH ×2 (05:13→13:04)
[2016-05-07] MEDS: FUROSEMIDE 100 MG/10 ML VIAL IV SCH ×3 (05:14→22:09)
[2016-05-07 05:34] LABS: Basophils # (Auto) 0 K/mcL (0.0-0.3); Basophils % (Auto) 0.4 % (0.0-2.0); Eosinophils # (Auto) 0.2 K/mcL (0.0-0.7); Eosinophils % (Auto) 2.8 % (0.0-7.0); Granulocytes % (Auto) 75.8 % (38.0-78.0); Lymphocytes # (Auto) 0.6 K/mcL (1.5-4.8); Lymphocytes % (Auto) 8.9 % (15.5-49.0); Mean Cell Volume 92.8 fL (80.0-100.0); Mean Corpuscular HGB Conc 31.6 g/dL (31.0-36.0); Mean Corpuscular Hemoglobin 29.4 pg (26.0-34.0); Monocytes # (Auto) 0.8 K/mcL (0.1-0.9); Monocytes % (Auto) 12.1 % (1.0-9.0); Platelet Count 147 K/mcL (140-440); RBC 3.03 M/mcL (4.00-5.20); Red Cell Distribution Width 14.4 % (11.5-14.5)
[2016-05-07 06:03] LABS: ALT/SGPT 10 U/l (0-40); Albumin 3.4 gm/dL (3.2-5.2); Albumin/Globulin Ratio 1.4 (1.0-2.3); Alkaline Phosphatase 69 U/L (39-117); Bilirubin,Direct < 0.2 mg/dL (0.0-0.3); Blood Urea Nitrogen 71 mg/dl (8-23); Gamma Glutamyl Transpeptidase 13 U/L (5-36); Magnesium 2.5 mg/dL (1.6-2.5); Phosphorous 3.9 mg/dL (2.7-4.5); Uric Acid 12.1 mg/dL (2.5-8.0)
[2016-05-07] MEDS: PANTOPRAZOLE 40 MG VIAL IV SCH (07:20)
[2016-05-07] MEDS: LEVOTHYROXINE 50 MCG TABLET PO SCH (07:20)
[2016-05-07] MEDS: APIXABAN 2.5 MG PO SCH ×2 (09:28→20:35)
[2016-05-07] MEDS: CALCIUM ACETATE 667 MG CAPSULE PO SCH ×2 (09:29→13:04)
[2016-05-07] MEDS: SPIRONOLACTONE 25 MG TABLET PO SCH (09:29)
[2016-05-07] MEDS: POLYETHYLENE GLYCOL 3350 17 GM PACKET PO SCH (09:30)
--- NOTE | 2016-05-07 10:16 | Internal Med Progress Note ---
Medical - PN: Subj Patient information: Note initiated : 05/07/16 at 10:14 am Service Date, if different from initiated Date: [] Patient: Corrina Arce a 89 y/o F admitted on 05/05/16 for Swelling, Increase Wt Gain/Anasarca, CHF. Chief Complaint: [] Interval history: 05/04-History of present illness: Ms. Arec is a 89 year old female with multiple medical comorbidites presents to the ER today from [facility] for evaluation and treatment of generalized anasarca after failed outpatient treatment. I reviwed the note by Dr Hernandez, the patient notes that she has h/o intermittent anasarca, which responded to diuretics in the past. The patient notes that this episode started around Seven, when she fell and had a vertebral fracture. The patients baseline weight is 172 lbs, and she has been progressively gaining weight, associated with edema, shortness of breath on exertion, and PND. The patient was treated with oral diuretics which did not help much. The patient. The patient has a baseline creat of approx 2.7, which seems to have remained stable, The initial plan it seems was to admit the patient to the [facility] at the begining of the month, however due to lack of beds the patient had PICC line placed and IV lasix given. The patient it seems did not respond well to the lasix, and therefore was sent to [facility] ER for further management. In the ER she had right pleural effusion, which was drained by Radiology with good effect. The patient at presents feels better, but still has significant fatigue, edema. Denies any chest pain, palpitation, nausea or vomiting. The labs in the ER reviwed, anemia noted, creat of 2.6, electrolytes otherwise stable, EKG with IC RBBB, low voltage. 05/05-nephrology consulted. patient on higher doses of Lasix. Status post thoracentesis/paracentesis. 05/06 patient feeling a lot better. Her appetite is back. Denies active shortness of breath fever chills. No concerns per staff. discussed echo finding with diastolic dysfunction/moderate to severe pulmonary hypertension with pulmonary artery pressure 55. Patient appears to have a poor understanding of her disease process. No family members present for further discussions on goals of care. Echo moderate , concentric LVH the diastolic dysfunction, moderate MR and moderate LAE , US abdomen shows cirrhotic liver/ascites. 05/07- patient sitting in chair. Friend at bedside. No overnight events. Fever chills nausea vomiting. Feels a lot better. Able to talk in full sentences. Again discussed in depth overall clinical picture with liver and cardiac issues in including pulmonary hypertension and stage IV kidney disease. Patient will be a poor candidate for dialysis in light of advanced age. She has diuresed over 1999 negative however with high-dose IV diuretics which would not be possible to continue on discharge. patient will very likely regain all the volume and develop subsequent anasarca/pleural effusion/ascites. Also discussed about comfort care options and patient is contemplating on same. I would defer dialysis discussions nephrology. - Constitutional Vitals: Vital Signs Temp Pulse Resp BP Pulse Ox 97.8 F 88 20 118/60 94 05/07/16 07:28 05/07/16 08:00 05/07/16 07:28 05/07/16 07:28 05/07/16 07:28 Period Temp Pulse Resp BP Sys/Stovall Pulse Ox Last 24 Hr 97.0 F-99.0 F 81-88 16-20 99-118/54-95 93-100 Intake and Output 05/06/16 05/07/16 05/07/16 21:59 05:59 13:59 Intake Total 240 / 240 340 / 340 Output Total 1600 / 1600 600 / 600 Balance -1360 / -1360 -260 / -260 Weight 180 lb Intake & Output: Intake & Output 05/06/16 05/07/16 05/07/16 21:59 05:59 13:59 Intake Total 240 / 240 340 / 340 Output Total 1600 / 1600 600 / 600 Balance -1360 / -1360 -260 / -260 Weight 180 lb Intake: Oral 240 / 240 340 / 340 Output: Urine Catheter Amount 1600 / 1600 600 / 600 Other: Meal Dinner Percent of Meal Consumed 100% Feeding Ability Assist with Tray Set Up # Bowel Movements 1 General appearance: cooperative, no acute distress Exam: improving lymphedema Diminished breath sounds bases abdomen nondistended no anxiety Medical - PN: Obj Da - Labs CBC & Chem 7: 05/07/16 04:55 05/07/16 04:55 Labs: Abnormal Lab Results 05/07/16 05/07/16 05/06/16 04:55 04:55 04:30 RBC 3.03 L Hgb 8.9 L Hct 28.1 L RDW Gran % Lymph % (Auto) 8.9 L Winkler % (Auto) 12.1 H Lymph # 0.6 L Chloride 92 L Carbon Dioxide 33 H BUN 71 H Creatinine 2.5 H Glucose 115 H Uric Acid 12.1 H Phosphorus Magnesium Total Protein 5.8 L Vitamin B12 PTH Intact 237.3 H 05/06/16 05/06/16 05/06/16 04:30 04:30 04:30 RBC 3.05 L Hgb 9.0 L Hct 28.4 L RDW 14.9 H Gran % 80.8 H Lymph % (Auto) 7.1 L Winkler % (Auto) 9.4 H Lymph # 0.6 L Chloride 93 L Carbon Dioxide BUN 71 H Creatinine 2.7 H Glucose 113 H Uric Acid 11.3 H Phosphorus 4.6 H Magnesium 2.7 H Total Protein 5.8 L Vitamin B12 1194 H PTH Intact Meds: Medications Acetaminophen (Tylenol) 650 mg PO Q6HP PRN PRN Reason: PAIN/FEVER > 101 Last Admin: 05/05/16 02:09 Dose: 325 mg Acetaminophen/Hydrocodone Bitart (Letha 5/325mg) 1 tab PO Q4HP PRN PRN Reason: Pain Last Admin: 05/05/16 13:55 Dose: 1 tab Albuterol/Ipratropium (Duoneb) 3 ml NEB Q6HRT PRN PRN Reason: Shortness Of Breath Or Wheezing Bisacodyl (Dulcolax) 10 mg PO DAILYP PRN PRN Reason: Constipation Last Admin: 05/05/16 21:02 Dose: 10 mg Bisacodyl (Dulcolax) 10 mg [place] DAILYP PRN PRN Reason: Constipation Calcium Acetate (Phoslo) 667 mg PO TIDCC [facility] Last Admin: 05/07/16 09:29 Dose: 667 mg Carvedilol (Coreg) 3.125 mg PO HS [facility] Last Admin: 05/06/16 20:30 Dose: 3.125 mg Ferrous Sulfate (Ferrous Sulfate) 325 mg PO BID@1200,1730 [facility] Last Admin: 05/06/16 17:51 Dose: 325 mg Furosemide (Lasix) 100 mg IV Q8 [facility] Last Admin: 05/07/16 05:14 Dose: 100 mg Heparin Sodium (Porcine) (Heparin Flush) 2 ml IV QSHIFT [facility] Last Admin: 05/07/16 09:30 Dose: 2 ml Levothyroxine Sodium (Synthroid) 50 mcg PO QAMAC [facility] Last Admin: 05/07/16 07:20 Dose: 50 mcg Metolazone (Zaroxolyn) 5 mg PO BID@0530,1330 [facility] Last Admin: 05/07/16 05:13 Dose: 5 mg Naloxone HCl (Narcan) 0.1 mg IV Q2MIN PRN PRN Reason: Opiate Reversal Apixaban (Eliquis) 2 (.5 Mg Tab) 1 dose PO BID [facility] Last Admin: 05/07/16 09:28 Dose: 1 dose Ondansetron HCl (Zofran) 4 mg IV Q4HP PRN PRN Reason: Nausea And Vomiting Pantoprazole Sodium (Protonix) 40 mg IV QAMAC [facility] Last Admin: 05/07/16 07:20 Dose: 40 mg Phenyltoloxamine Citr/Acetaminophen (Tylenol Pm) 1 tab PO HSP PRN PRN Reason: Insomnia Last Admin: 05/05/16 21:03 Dose: 1 tab Polyethylene Glycol (Miralax) 17 gm PO DAILY [facility] Last Admin: 05/07/16 09:30 Dose: 17 gm Spironolactone (Aldactone) 25 mg PO DAILY [facility] Last Admin: 05/07/16 09:29 Dose: 25 mg Medical - PN: A/P - Time Spent With Patient Total time spent is greater than 50% in coordination of care (as documented) at patient's floor/unit and/or counseling patient: 25 - 35 minutes (1) Anasarca associated with disorder of kidney Status: Acute Assessment and plan: * Anasarca-with pleural effusions/ascites/lymphedema. Status post Thoracentesis / paracentesis. n aggressive diuresis as per nephrology. underlying PA HTN/ diastolic heart failure/chronic kidney disease stage IV. 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 continue spironolactone/Lasix * History of atrial fibrillation rate controlled On Coreg. anticoagulation on CVA prophylaxis on apixiban * history of gout on colchicine * hypothyroidism on thyroxine Plan * Continue diuresis as per nephrology * Patient aware of overall poor prognosis. contemplating on comfort care measures * Continue pre-existing medical condition on medications as above Current Visit: Yes Medical - PN: Qual - VTE Deep Vein Thrombosis/Pulmonary Embolism Present on Admission: Yes
[2016-05-07] MEDS: FERROUS SULFATE 325 MG TABLET PO SCH (13:04)
--- NOTE | 2016-05-07 17:27 | Nephrology Progress Note ---
Subjective Patient information: Note initiated : 05/07/16 at 5:25 pm Service Date, if different from initiated Date: [] Patient: Corrina Arce 89 y/o F admitted on 05/05/16 for Swelling, Increase Wt Gain/Anasarca, CHF. Chief Complaint: [] Principal diagnosis: anasarca Interval history: improving edema and fluid status renal function stable denies SOB, CP, dizziness No significant overnight events reported Pertinent ROS: 10 point ROS done and pertinent positive and negative documented above Objective - Vital Signs Vital signs: Vital Signs Temp Pulse Pulse Resp BP Pulse Ox 05/07/16 15:38 98.2 F 82 22 101/57 98 05/07/16 13:52 91 05/07/16 12:00 98.3 F 81 18 111/65 90 05/07/16 08:00 88 05/07/16 07:28 97.8 F 88 88 20 118/60 94 05/07/16 04:00 98.0 F 18 100/67 98 05/07/16 00:00 99.0 F 81 16 108/54 93 05/06/16 20:00 98.0 F 20 115/66 97 Intake and Output 05/07/16 05/07/16 05/07/16 05:59 13:59 21:59 Intake Total 340 / 340 550 / 550 300 / 300 Output Total 600 / 600 1250 / 1250 Balance -260 / -260 550 / 550 -950 / -950 Intake: Oral 340 / 340 550 / 550 300 / 300 Output: Urine Catheter Amount 600 / 600 1250 / 1250 Other: Meal Breakfast Percent of Meal Consumed 100% Feeding Ability Assist with Tray Set Up Intake & Output: Intake & Output 05/07/16 05/07/16 05/07/16 05:59 13:59 21:59 Intake Total 340 / 340 550 / 550 300 / 300 Output Total 600 / 600 1250 / 1250 Balance -260 / -260 550 / 550 -950 / -950 Intake: Oral 340 / 340 550 / 550 300 / 300 Output: Urine Catheter Amount 600 / 600 1250 / 1250 Other: Meal Breakfast Percent of Meal Consumed 100% Feeding Ability Assist with Tray Set Up - General Appearance General appearance: appears started age, obese EENT: mucous membranes moist Neck: no JVD Respiratory: clear Cardiology: no rub, edema, normal S1, normal S2 Gastrointestinal: no tenderness, no guarding Integumentary: warm and dry, chronic venous stasis Neurologic: no asterixis, alert and oriented x3 Musculoskeletal: no erythema, no cyanosis Psychiatric: mood/affect appropriate - Lab 05/07/16 04:55 05/07/16 04:55 Most recent lab results Calcium 9.2 mg/dl (8.6-10.4) 05/07/16 04:55 Phosphorus 3.9 mg/dL (2.7-4.5) 05/07/16 04:55 Magnesium 2.5 mg/dL (1.6-2.5) 05/07/16 04:55 Assessment and Plan (1) CKD (chronic kidney disease), stage IV s.creatinine stable at 2.5, Bun is in 70's no uremic symptoms Fluid status improving discussed dialysis as an option and discussed given her age and also more important multiple issues including cirrhosis/chf, dialysis may not necessarily improve her quality of life or prolong her life as has been shown in studies I have also discussed this with Dr Briceño explained that if she wants to give this a try I would be willing to help her however the patient does not think she would prolong her life by interventions like dialysis which may limit her quality of life and does not want to pursue this She however wants to stay comfortable and avoid edema I think we should continue with IV diuretics for another day as her fluid status is improving and then change her oral diuretics, follow the response, optimize meds and then discharge her she does not want to follow with nephrology and prefers following with PCP on discharge I will follow her while in hospital Thank you for giving me an opportunity to participate in Ms Ambrose's medical care, appreciate it Status: Acute
[2016-05-07] MEDS ORDERED: diphenhydrAMINE 25 MG CAPSULE ONE (20:31)
[2016-05-07] MEDS ORDERED: ACETAMINOPHEN 500 MG TABLET PO ONE (20:31)
[2016-05-07] MEDS: CARVEDILOL 3.125 MG TABLET PO SCH (20:34)
[2016-05-08] MEDS: METOLAZONE 2.5 MG TABLET PO SCH ×2 (05:08→15:30)
[2016-05-08] MEDS: FUROSEMIDE 100 MG/10 ML VIAL IV SCH ×2 (05:42→15:30)
[2016-05-08 05:49] LABS: Basophils # (Auto) 0 K/mcL (0.0-0.3); Basophils % (Auto) 0.1 % (0.0-2.0); Eosinophils # (Auto) 0.3 K/mcL (0.0-0.7); Eosinophils % (Auto) 4.8 % (0.0-7.0); Granulocytes % (Auto) 74.1 % (38.0-78.0); Lymphocytes # (Auto) 0.6 K/mcL (1.5-4.8); Mean Cell Volume 92.7 fL (80.0-100.0); Mean Corpuscular HGB Conc 32.1 g/dL (31.0-36.0); Mean Corpuscular Hemoglobin 29.8 pg (26.0-34.0); Monocytes # (Auto) 0.7 K/mcL (0.1-0.9); Platelet Count 149 K/mcL (140-440); RBC 3.02 M/mcL (4.00-5.20); Red Cell Distribution Width 14.5 % (11.5-14.5)
[2016-05-08 06:43] LABS: ALT/SGPT 9 U/l (0-40); Albumin 3.3 gm/dL (3.2-5.2); Albumin/Globulin Ratio 1.3 (1.0-2.3); Alkaline Phosphatase 66 U/L (39-117); Bilirubin,Direct < 0.2 mg/dL (0.0-0.3); Blood Urea Nitrogen 68 mg/dl (8-23); Gamma Glutamyl Transpeptidase 13 U/L (5-36); Magnesium 2.4 mg/dL (1.6-2.5); Phosphorous 3.6 mg/dL (2.7-4.5); Uric Acid 12.2 mg/dL (2.5-8.0)
[2016-05-08] MEDS: FERROUS SULFATE 325 MG TABLET PO SCH ×3 (08:39→16:15)
[2016-05-08] MEDS: CALCIUM ACETATE 667 MG CAPSULE PO SCH ×4 (08:40→16:15)
[2016-05-08] MEDS: LEVOTHYROXINE 50 MCG TABLET PO SCH (09:18)
[2016-05-08] MEDS: PANTOPRAZOLE 40 MG VIAL IV SCH (09:18)
[2016-05-08] MEDS: POLYETHYLENE GLYCOL 3350 17 GM PACKET PO SCH (09:19)
[2016-05-08] MEDS: SPIRONOLACTONE 25 MG TABLET PO SCH (09:19)
[2016-05-08] MEDS: APIXABAN 2.5 MG PO SCH ×2 (09:19→20:29)
--- NOTE | 2016-05-08 11:08 | Internal Med Progress Note ---
Medical - PN: Subj Patient information: Note initiated : 05/08/16 at 11:03 am Service Date, if different from initiated Date: [] Patient: Corrina Arce a 89 y/o F admitted on 05/05/16 for Swelling, Increase Wt Gain/Anasarca, CHF. Chief Complaint: [] Interval history: 05/04-History of present illness: Ms. Arce is a 89 year old female with multiple medical comorbidites presents to the ER today from [facility] for evaluation and treatment of generalized anasarca after failed outpatient treatment. I reviwed the note by Dr Hernandez, the patient notes that she has h/o intermittent anasarca, which responded to diuretics in the past. The patient notes that this episode started around Seven, when she fell and had a vertebral fracture. The patients baseline weight is 172 lbs, and she has been progressively gaining weight, associated with edema, shortness of breath on exertion, and PND. The patient was treated with oral diuretics which did not help much. The patient. The patient has a baseline creat of approx 2.7, which seems to have remained stable, The initial plan it seems was to admit the patient to the [facility] at the begining of the month, however due to lack of beds the patient had PICC line placed and IV lasix given. The patient it seems did not respond well to the lasix, and therefore was sent to [facility] ER for further management. In the ER she had right pleural effusion, which was drained by Radiology with good effect. The patient at presents feels better, but still has significant fatigue, edema. Denies any chest pain, palpitation, nausea or vomiting. The labs in the ER reviwed, anemia noted, creat of 2.6, electrolytes otherwise stable, EKG with IC RBBB, low voltage. 05/05-nephrology consulted. patient on higher doses of Lasix. Status post thoracentesis/paracentesis. 05/06 patient feeling a lot better. Her appetite is back. Denies active shortness of breath fever chills. No concerns per staff. discussed echo finding with diastolic dysfunction/moderate to severe pulmonary hypertension with pulmonary artery pressure 55. Patient appears to have a poor understanding of her disease process. No family members present for further discussions on goals of care. Echo moderate , concentric LVH the diastolic dysfunction, moderate MR and moderate LAE , US abdomen shows cirrhotic liver/ascites. 05/07- patient sitting in chair. Friend at bedside. No overnight events. Fever chills nausea vomiting. Feels a lot better. Able to talk in full sentences. Again discussed in depth overall clinical picture with liver and cardiac issues in including pulmonary hypertension and stage IV kidney disease. Patient will be a poor candidate for dialysis in light of advanced age. She has diuresed over 1999 negative however with high-dose IV diuretics which would not be possible to continue on discharge. patient will very likely regain all the volume and develop subsequent anasarca/pleural effusion/ascites. Also discussed about comfort care options and patient is contemplating on same. I would defer dialysis discussions nephrology. 05/08- patient doing better with improved diuresis managed by nephrology. able to ambulate and asymptomatic. Much improved anasarca however persistent lower extremity lymphedema. Compressive wraps. Improved appetite. Nonlabored breathing. sats stable on room air. anticipated additional 48 hours hospitalization for continued diuresis and transition to oral diuretic as per nephrology recommendations. - Constitutional Vitals: Vital Signs Temp Pulse Resp BP Pulse Ox 98.4 F 71 18 112/60 100 05/08/16 08:00 05/08/16 08:00 05/08/16 08:00 05/08/16 08:00 05/08/16 08:00 Period Temp Pulse Resp BP Sys/Stovall Pulse Ox Last 24 Hr 98.0 F-98.5 F 71-83 16-22 99-115/57-93 90-100 Intake and Output 05/07/16 05/08/16 05/08/16 21:59 05:59 13:59 Intake Total 600 / 600 400 / 400 240 / 240 Output Total 1250 / 1250 1150 / 1150 Balance -650 / -650 -750 / -750 240 / 240 Weight 191 lb Intake & Output: Intake & Output 05/07/16 05/08/16 05/08/16 21:59 05:59 13:59 Intake Total 600 / 600 400 / 400 240 / 240 Output Total 1250 / 1250 1150 / 1150 Balance -650 / -650 -750 / -750 240 / 240 Weight 191 lb Intake: Oral 600 / 600 400 / 400 240 / 240 Output: Urine Catheter Amount 1250 / 1250 1150 / 1150 General appearance: cooperative, no acute distress Exam: alert oriented nonlabored breathing No fever chills Nondistended abdomen Significant lymphedema bilateral lower extremity Medical - PN: Obj Da - Labs CBC & Chem 7: 05/08/16 04:16 05/08/16 04:16 Labs: Abnormal Lab Results 05/08/16 05/08/16 05/07/16 04:16 04:16 04:55 RBC 3.02 L Hgb 9.0 L Hct 28.0 L RDW Gran % Lymph % (Auto) 10.0 L Cavalier % (Auto) 11.0 H Lymph # 0.6 L Chloride 92 L 92 L Carbon Dioxide 32 H 33 H BUN 68 H 71 H Creatinine 2.3 H 2.5 H Glucose 115 H Uric Acid 12.2 H 12.1 H Phosphorus Magnesium Total Protein 5.8 L 5.8 L Vitamin B12 PTH Intact 05/07/16 05/06/16 05/06/16 04:55 04:30 04:30 RBC 3.03 L Hgb 8.9 L Hct 28.1 L RDW Gran % Lymph % (Auto) 8.9 L Cavalier % (Auto) 12.1 H Lymph # 0.6 L Chloride Carbon Dioxide BUN Creatinine Glucose Uric Acid Phosphorus Magnesium Total Protein Vitamin B12 1194 H PTH Intact 237.3 H 05/06/16 05/06/16 04:30 04:30 RBC 3.05 L Hgb 9.0 L Hct 28.4 L RDW 14.9 H Gran % 80.8 H Lymph % (Auto) 7.1 L Cavalier % (Auto) 9.4 H Lymph # 0.6 L Chloride 93 L Carbon Dioxide BUN 71 H Creatinine 2.7 H Glucose 113 H Uric Acid 11.3 H Phosphorus 4.6 H Magnesium 2.7 H Total Protein 5.8 L Vitamin B12 PTH Intact Meds: Medications Acetaminophen (Tylenol) 650 mg PO Q6HP PRN PRN Reason: PAIN/FEVER > 101 Last Admin: 05/05/16 02:09 Dose: 325 mg Acetaminophen/Hydrocodone Bitart (Beatrice 5/325mg) 1 tab PO Q4HP PRN PRN Reason: Pain Last Admin: 05/05/16 13:55 Dose: 1 tab Albuterol/Ipratropium (Duoneb) 3 ml NEB Q6HRT PRN PRN Reason: Shortness Of Breath Or Wheezing Bisacodyl (Dulcolax) 10 mg PO DAILYP PRN PRN Reason: Constipation Last Admin: 05/05/16 21:02 Dose: 10 mg Bisacodyl (Dulcolax) 10 mg SD DAILYP PRN PRN Reason: Constipation Calcium Acetate (Phoslo) 667 mg PO TIDCC [facility] Last Admin: 05/08/16 09:18 Dose: 667 mg Carvedilol (Coreg) 3.125 mg PO HS [facility] Last Admin: 05/07/16 20:34 Dose: 3.125 mg Ferrous Sulfate (Ferrous Sulfate) 325 mg PO BID@1200,1730 [facility] Last Admin: 05/08/16 08:39 Dose: Not Given Furosemide (Lasix) 100 mg IV Q8 [facility] Last Admin: 05/08/16 05:42 Dose: 100 mg Heparin Sodium (Porcine) (Heparin Flush) 2 ml IV QSHIFT [facility] Last Admin: 05/08/16 09:19 Dose: 2 ml Levothyroxine Sodium (Synthroid) 50 mcg PO QAMAC [facility] Last Admin: 05/08/16 09:18 Dose: 50 mcg Metolazone (Zaroxolyn) 5 mg PO BID@0530,1330 [facility] Last Admin: 05/08/16 05:08 Dose: 5 mg Naloxone HCl (Narcan) 0.1 mg IV Q2MIN PRN PRN Reason: Opiate Reversal Apixaban (Eliquis) 2 (.5 Mg Tab) 1 dose PO BID [facility] Last Admin: 05/08/16 09:19 Dose: 1 dose Ondansetron HCl (Zofran) 4 mg IV Q4HP PRN PRN Reason: Nausea And Vomiting Pantoprazole Sodium (Protonix) 40 mg IV QAMAC [facility] Last Admin: 05/08/16 09:18 Dose: 40 mg Phenyltoloxamine Citr/Acetaminophen (Tylenol Pm) 1 tab PO HSP PRN PRN Reason: Insomnia Last Admin: 05/05/16 21:03 Dose: 1 tab Polyethylene Glycol (Miralax) 17 gm PO DAILY [facility] Last Admin: 05/08/16 09:19 Dose: 17 gm Spironolactone (Aldactone) 25 mg PO DAILY [facility] Last Admin: 05/08/16 09:19 Dose: 25 mg Medical - PN: A/P - Time Spent With Patient Total time spent is greater than 50% in coordination of care (as documented) at patient's floor/unit and/or counseling patient: 25 - 35 minutes (1) Anasarca associated with disorder of kidney Status: Acute Assessment and plan: * Anasarca-with pleural effusions/ascites/lymphedema. Status post Thoracentesis / paracentesis. continuing aggressive IV diuretics as per nephrology with adequate response. underlying PA HTN/diastolic heart failure/chronic kidney disease stage IV. responding to diuretics. 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 continue spironolactone/Lasix * History of atrial fibrillation rate controlled On Coreg. anticoagulation on CVA prophylaxis on apixiban * history of gout on colchicine * hypothyroidism on thyroxine Plan * Continue anasarca/COPD management per nephrology * Patient aware of overall poor prognosis. * possible discharge in 2-3 days with outpatient diuretics as per nephrology * pre-existing medical condition management as above * Continue physical therapy Current Visit: Yes Medical - PN: Qual - VTE Deep Vein Thrombosis/Pulmonary Embolism Present on Admission: Yes
[2016-05-08] MEDS ORDERED: IRON SUCROSE COMPLEX 100 MG/5 ML VIAL IV ONE (14:22)
--- NOTE | 2016-05-08 14:25 | Nephrology Progress Note ---
Subjective Patient information: Note initiated : 05/08/16 at 2:22 pm Service Date, if different from initiated Date: [] Patient: Corrina Arce 89 y/o F admitted on 05/05/16 for Swelling, Increase Wt Gain/Anasarca, CHF. Chief Complaint: [] Principal diagnosis: anasarca Interval history: edema stable 850cc net negative urine output no uremic symptoms no sob, CP ambulating with help of PT no significant overnight events Pertinent ROS: 10 point ROS done and pertinent positive and negative documented above Objective - Vital Signs Vital signs: Vital Signs Temp Pulse Resp BP BP Pulse Ox 05/08/16 12:00 98.3 F 90 18 93/82 98 05/08/16 08:00 98.4 F 71 18 112/60 100 05/08/16 04:00 98.0 F 16 99/68 99 05/08/16 00:00 98.2 F 18 115/93 95 05/07/16 19:51 82 05/07/16 19:47 98.5 F 83 20 114/65 97 05/07/16 15:38 98.2 F 82 22 101/57 98 Intake and Output 05/08/16 05/08/16 05/08/16 05:59 13:59 21:59 Intake Total 400 / 400 480 / 480 Output Total 1150 / 1150 Balance -750 / -750 480 / 480 Intake: Oral 400 / 400 480 / 480 Output: Urine Catheter Amount 1150 / 1150 Intake & Output: Intake & Output 05/08/16 05/08/16 05/08/16 05:59 13:59 21:59 Intake Total 400 / 400 480 / 480 Output Total 1150 / 1150 Balance -750 / -750 480 / 480 Intake: Oral 400 / 400 480 / 480 Output: Urine Catheter Amount 1150 / 1150 - General Appearance General appearance: appears started age, obese EENT: mucous membranes moist Neck: no JVD Respiratory: clear Cardiology: no rub, edema, normal S1, normal S2 Gastrointestinal: no tenderness, no masses Integumentary: warm and dry Neurologic: alert and oriented x3 Musculoskeletal: no erythema, no cyanosis Psychiatric: mood/affect appropriate - Lab 05/08/16 04:16 05/08/16 04:16 Most recent lab results Calcium 9.3 mg/dl (8.6-10.4) 05/08/16 04:16 Phosphorus 3.6 mg/dL (2.7-4.5) 05/08/16 04:16 Magnesium 2.4 mg/dL (1.6-2.5) 05/08/16 04:16 Assessment and Plan (1) CKD (chronic kidney disease), stage IV s.creatinine stable at 2.2 egfr is 18ml/min, Bun is in 70's no uremic symptoms Fluid status improving will change to oral diuretic bumex 3mg bid and metolazone 5mg in am will continue with spironolactone only at 25mg po daily coreg at 3.125mg hs given low normal BP patient has opted not to do dialysis Anemia with low iron sat, will given IV venofer today, if no issues will repeat a dose tomorrow she will likely need PANCHITO Will do this if she agrees to come as outpt CHF/cirrhosis of liver Will follow along Thank you for giving me an opportunity to participate in Ms Arce's medical care, appreciate it Status: Acute
[2016-05-08] MEDS: BUMETANIDE 1 MG TABLET PO SCH (16:16)
[2016-05-08] MEDS: CARVEDILOL 3.125 MG TABLET PO SCH (20:29)
[2016-05-08] MEDS ORDERED: ACETAMINOPHEN 500 MG TABLET PO PRN (21:14)
[2016-05-08] MEDS ORDERED: diphenhydrAMINE 25 MG CAPSULE PO PRN (21:15)
[2016-05-09 05:19] LABS: Basophils # (Auto) 0 K/mcL (0.0-0.3); Basophils % (Auto) 0 % (0.0-2.0); Eosinophils # (Auto) 0.2 K/mcL (0.0-0.7); Eosinophils % (Auto) 3.2 % (0.0-7.0); Granulocytes % (Auto) 80.7 % (38.0-78.0); Lymphocytes # (Auto) 0.4 K/mcL (1.5-4.8); Lymphocytes % (Auto) 5.9 % (15.5-49.0); Mean Cell Volume 93.6 fL (80.0-100.0); Mean Corpuscular HGB Conc 31.5 g/dL (31.0-36.0); Mean Corpuscular Hemoglobin 29.5 pg (26.0-34.0); Monocytes # (Auto) 0.7 K/mcL (0.1-0.9); Monocytes % (Auto) 10.2 % (1.0-9.0); Platelet Count 154 K/mcL (140-440); Red Cell Distribution Width 15.2 % (11.5-14.5)
[2016-05-09 05:45] LABS: ALT/SGPT 9 U/l (0-40); Albumin 3.5 gm/dL (3.2-5.2); Albumin/Globulin Ratio 1.6 (1.0-2.3); Alkaline Phosphatase 61 U/L (39-117); Bilirubin,Direct < 0.2 mg/dL (0.0-0.3); Blood Urea Nitrogen 69 mg/dl (8-23); Gamma Glutamyl Transpeptidase 13 U/L (5-36); Magnesium 2.3 mg/dL (1.6-2.5); Phosphorous 3.5 mg/dL (2.7-4.5); Uric Acid 13.1 mg/dL (2.5-8.0)
[2016-05-09] MEDS: PANTOPRAZOLE 40 MG VIAL IV SCH (07:01)
[2016-05-09] MEDS: LEVOTHYROXINE 50 MCG TABLET PO SCH (07:01)
[2016-05-09] MEDS: BUMETANIDE 1 MG TABLET PO SCH ×2 (07:40→16:09)
[2016-05-09] MEDS: APIXABAN 2.5 MG PO SCH ×2 (07:42→19:48)
[2016-05-09] MEDS: POLYETHYLENE GLYCOL 3350 17 GM PACKET PO SCH (07:42)
[2016-05-09] MEDS: CALCIUM ACETATE 667 MG CAPSULE PO SCH ×3 (07:42→16:06)
[2016-05-09] MEDS: SPIRONOLACTONE 25 MG TABLET PO SCH (08:15)
[2016-05-09] MEDS ORDERED: METOLAZONE 2.5 MG TABLET PO SCH (08:30)
--- NOTE | 2016-05-09 10:24 | Internal Med Progress Note ---
Medical - PN: Subj Patient information: Note initiated : 05/09/16 at 10:20 am Service Date, if different from initiated Date: [] Patient: Corrina Arce a 89 y/o F admitted on 05/05/16 for Swelling, Increase Wt Gain/Anasarca, CHF. Chief Complaint: [] Interval history: 05/04-History of present illness: Ms. Arce is a 89 year old female with multiple medical comorbidites presents to the ER today from [facility] for evaluation and treatment of generalized anasarca after failed outpatient treatment. I reviwed the note by Dr Hernandez, the patient notes that she has h/o intermittent anasarca, which responded to diuretics in the past. The patient notes that this episode started around Seven, when she fell and had a vertebral fracture. The patients baseline weight is 172 lbs, and she has been progressively gaining weight, associated with edema, shortness of breath on exertion, and PND. The patient was treated with oral diuretics which did not help much. The patient. The patient has a baseline creat of approx 2.7, which seems to have remained stable, The initial plan it seems was to admit the patient to the [facility] at the begining of the month, however due to lack of beds the patient had PICC line placed and IV lasix given. The patient it seems did not respond well to the lasix, and therefore was sent to [facility] ER for further management. In the ER she had right pleural effusion, which was drained by Radiology with good effect. The patient at presents feels better, but still has significant fatigue, edema. Denies any chest pain, palpitation, nausea or vomiting. The labs in the ER reviwed, anemia noted, creat of 2.6, electrolytes otherwise stable, EKG with IC RBBB, low voltage. 05/05-nephrology consulted. patient on higher doses of Lasix. Status post thoracentesis/paracentesis. 05/06 patient feeling a lot better. Her appetite is back. Denies active shortness of breath fever chills. No concerns per staff. discussed echo finding with diastolic dysfunction/moderate to severe pulmonary hypertension with pulmonary artery pressure 55. Patient appears to have a poor understanding of her disease process. No family members present for further discussions on goals of care. Echo moderate , concentric LVH the diastolic dysfunction, moderate MR and moderate LAE , US abdomen shows cirrhotic liver/ascites. 05/07- patient sitting in chair. Friend at bedside. No overnight events. Fever chills nausea vomiting. Feels a lot better. Able to talk in full sentences. Again discussed in depth overall clinical picture with liver and cardiac issues in including pulmonary hypertension and stage IV kidney disease. Patient will be a poor candidate for dialysis in light of advanced age. She has diuresed over 1999 negative however with high-dose IV diuretics which would not be possible to continue on discharge. patient will very likely regain all the volume and develop subsequent anasarca/pleural effusion/ascites. Also discussed about comfort care options and patient is contemplating on same. I would defer dialysis discussions nephrology. 05/08- patient doing better with improved diuresis managed by nephrology. able to ambulate and asymptomatic. Much improved anasarca however persistent lower extremity lymphedema. Compressive wraps. Improved appetite. Nonlabored breathing. sats stable on room air. anticipated additional 48 hours hospitalization for continued diuresis and transition to oral diuretic as per nephrology recommendations. 05/09- patient feeling better. Diuresing well. Improving lymphedema. Creatinine 2.1. IV iron per nephrology for anemia. No active concerns/fever chills nausea vomiting or telemetry events. Transfer to medical floor. Anticipate discharge in 48 hours - Constitutional Vitals: Vital Signs Temp Pulse Resp BP Pulse Ox 99.3 F 77 16 126/69 98 05/09/16 07:00 05/09/16 07:00 05/09/16 07:00 05/09/16 07:00 05/09/16 07:00 Period Temp Pulse Resp BP Sys/Stovall Pulse Ox Last 24 Hr 97.8 F-99.3 F 77-90 16-20 93-127/53-82 94-98 Intake and Output 05/08/16 05/09/16 05/09/16 21:59 05:59 13:59 Intake Total 340 / 340 540 / 540 120 / 120 Output Total 1400 / 1400 1125 / 1125 Balance -1060 / -1060 -585 / -585 120 / 120 Weight 187 lb Intake & Output: Intake & Output 05/08/16 05/09/16 05/09/16 21:59 05:59 13:59 Intake Total 340 / 340 540 / 540 120 / 120 Output Total 1400 / 1400 1125 / 1125 Balance -1060 / -1060 -585 / -585 120 / 120 Weight 187 lb Intake: Oral 340 / 340 540 / 540 120 / 120 Output: Urine Catheter Amount 1400 / 1400 1125 / 1125 Other: Meal Lunch Breakfast Percent of Meal Consumed 100% 100% # Bowel Movements 1 1 1 General appearance: cooperative, no acute distress Exam: persistent but improved lymphedema Nonlabored breathing No anxiety Minimal pallor Medical - PN: Obj Da - Labs CBC & Chem 7: 05/09/16 04:06 05/09/16 04:06 Labs: Abnormal Lab Results 05/09/16 05/09/16 05/08/16 04:06 04:06 04:16 RBC 3.00 L Hgb 8.9 L Hct 28.1 L RDW 15.2 H Gran % 80.7 H Lymph % (Auto) 5.9 L [place] % (Auto) 10.2 H Lymph # 0.4 L Chloride 90 L 92 L Carbon Dioxide 35 H 32 H BUN 69 H 68 H Creatinine 2.1 H 2.3 H Glucose 115 H Uric Acid 13.1 H 12.2 H Total Protein 5.7 L 5.8 L 05/08/16 05/07/16 05/07/16 04:16 04:55 04:55 RBC 3.02 L 3.03 L Hgb 9.0 L 8.9 L Hct 28.0 L 28.1 L RDW Gran % Lymph % (Auto) 10.0 L 8.9 L Leslie % (Auto) 11.0 H 12.1 H Lymph # 0.6 L 0.6 L Chloride 92 L Carbon Dioxide 33 H BUN 71 H Creatinine 2.5 H Glucose 115 H Uric Acid 12.1 H Total Protein 5.8 L Meds: Medications Acetaminophen (Tylenol) 650 mg PO Q6HP PRN PRN Reason: PAIN/FEVER > 101 Last Admin: 05/05/16 02:09 Dose: 325 mg Acetaminophen (Tylenol) 500 mg PO HSP PRN PRN Reason: Insomnia Acetaminophen/Hydrocodone Bitart ([place] 5/325mg) 1 tab PO Q4HP PRN PRN Reason: Pain Last Admin: 05/05/16 13:55 Dose: 1 tab Albuterol/Ipratropium (Duoneb) 3 ml NEB Q6HRT PRN PRN Reason: Shortness Of Breath Or Wheezing Bisacodyl (Dulcolax) 10 mg PO DAILYP PRN PRN Reason: Constipation Last Admin: 05/05/16 21:02 Dose: 10 mg Bisacodyl (Dulcolax) 10 mg [place] DAILYP PRN PRN Reason: Constipation Bumetanide (Bumex) 3 mg PO BIDD COUNT INCLUDES THE [facility] Last Admin: 05/09/16 07:40 Dose: 3 mg Calcium Acetate (Phoslo) 667 mg PO TIDCC COUNT INCLUDES THE [facility] Last Admin: 05/09/16 07:42 Dose: 667 mg Carvedilol (Coreg) 3.125 mg PO HS COUNT INCLUDES THE [facility] Last Admin: 05/08/16 20:29 Dose: 3.125 mg Diphenhydramine HCl (Benadryl) 25 mg PO HSP PRN PRN Reason: Insomnia Ferrous Sulfate (Ferrous Sulfate) 325 mg PO BID@1200,1730 COUNT INCLUDES THE [facility] Last Admin: 05/08/16 16:15 Dose: 325 mg Heparin Sodium (Porcine) (Heparin Flush) 2 ml IV QSHIFT COUNT INCLUDES THE [facility] Last Admin: 05/08/16 20:29 Dose: 2 ml Levothyroxine Sodium (Synthroid) 50 mcg PO QAMAC COUNT INCLUDES THE [facility] Last Admin: 05/09/16 07:01 Dose: 50 mcg Metolazone (Zaroxolyn) 5 mg PO DAILY@0830 COUNT INCLUDES THE [facility] Last Admin: 05/09/16 07:42 Dose: 5 mg Naloxone HCl (Narcan) 0.1 mg IV Q2MIN PRN PRN Reason: Opiate Reversal Apixaban (Eliquis) 2 (.5 Mg Tab) 1 dose PO BID COUNT INCLUDES THE [facility] Last Admin: 05/09/16 07:42 Dose: 1 dose Ondansetron HCl (Zofran) 4 mg IV Q4HP PRN PRN Reason: Nausea And Vomiting Pantoprazole Sodium (Protonix) 40 mg IV QAMAC COUNT INCLUDES THE [facility] Last Admin: 05/09/16 07:01 Dose: 40 mg Polyethylene Glycol (Miralax) 17 gm PO DAILY COUNT INCLUDES THE [facility] Last Admin: 05/09/16 07:42 Dose: 17 gm Spironolactone (Aldactone) 25 mg PO DAILY COUNT INCLUDES THE [facility] Last Admin: 05/09/16 08:15 Dose: 25 mg Medical - PN: A/P - Time Spent With Patient Total time spent is greater than 50% in coordination of care (as documented) at patient's floor/unit and/or counseling patient: 15 - 24 minutes (1) Anasarca associated with disorder of kidney Status: Acute Assessment and plan: * Anasarca-with pleural effusions/ascites/lymphedema. secondary to pulmonary hypertension/chronic renal failure. S/p Thoracentesis/ paracentesis. on continue diuresis as per nephrology. 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 continue spironolactone/ diuretics(Bumex/metolazone) * History of atrial fibrillation rate controlled On Coreg. anticoagulation on CVA prophylaxis on apixiban * history of gout on colchicine * hypothyroidism on thyroxine Plan * anasarca/renal issues management nephrology * possible discharge in 48 hours * continue prior medical condition management as above * Continue physical therapy Current Visit: Yes Medical - PN: Qual - VTE Deep Vein Thrombosis/Pulmonary Embolism Present on Admission: Yes
[2016-05-09] MEDS ORDERED: IPRATROPIUM/ALBUTEROL 3 ML AMPUL.NEB NEB PRN (10:40)
[2016-05-09] MEDS ORDERED: ACETAMINOPHEN 325 MG TABLET PO PRN (10:40)
[2016-05-09] MEDS ORDERED: NALOXONE HCL 0.4 MG/ML VIAL IV PRN (10:40)
[2016-05-09] MEDS ORDERED: BISACODYL 5 MG TABLET PO PRN (10:40)
[2016-05-09] MEDS ORDERED: ONDANSETRON 4 MG/2 ML VIAL IV PRN (10:40)
[2016-05-09] MEDS ORDERED: HYDROcodone/APAP 5/325MG TABLET PO PRN (10:40)
[2016-05-09] MEDS ORDERED: BISACODYL 10 MG SUPP.RECT PR PRN (10:40)
--- NOTE | 2016-05-09 12:05 | Nephrology Progress Note ---
Subjective Patient information: Note initiated : 05/09/16 at 12:02 pm Service Date, if different from initiated Date: [] Patient: Corrina Arce 89 y/o F admitted on 05/05/16 for Swelling, Increase Wt Gain/Anasarca, CHF. Chief Complaint: [] Principal diagnosis: anasarca Interval history: no new issues transferred to the floor good diuresis, pt still has significant edema denies SOB, CP No uremic symptoms no urinary issues Pertinent ROS: 10 point ROS done and pertinent positive and negative documented above Objective - Vital Signs Vital signs: Vital Signs Temp Pulse Pulse Pulse Resp BP BP 05/09/16 07:00 99.3 F 77 77 77 16 126/69 05/09/16 05:58 05/09/16 03:00 97.8 F 80 18 115/65 05/08/16 23:18 98.0 F 78 16 127/56 05/08/16 19:35 98.3 F 86 18 119/53 05/08/16 16:00 98.5 F 79 20 107/57 Pulse Ox 05/09/16 07:00 98 05/09/16 05:58 94 05/09/16 03:00 94 05/08/16 23:18 96 05/08/16 19:35 96 05/08/16 16:00 98 Intake and Output 05/08/16 05/09/16 05/09/16 21:59 05:59 13:59 Intake Total 340 / 340 540 / 540 120 / 120 Output Total 1400 / 1400 1125 / 1125 Balance -1060 / -1060 -585 / -585 120 / 120 Intake: Oral 340 / 340 540 / 540 120 / 120 Output: Urine Catheter Amount 1400 / 1400 1125 / 1125 Other: Meal Lunch Breakfast Percent of Meal Consumed 100% 100% # Bowel Movements 1 1 1 Weight 187 lb Intake & Output: Intake & Output 05/08/16 05/09/16 05/09/16 21:59 05:59 13:59 Intake Total 340 / 340 540 / 540 120 / 120 Output Total 1400 / 1400 1125 / 1125 Balance -1060 / -1060 -585 / -585 120 / 120 Weight 187 lb Intake: Oral 340 / 340 540 / 540 120 / 120 Output: Urine Catheter Amount 1400 / 1400 1125 / 1125 Other: Meal Lunch Breakfast Percent of Meal Consumed 100% 100% # Bowel Movements 1 1 1 - General Appearance General appearance: appears started age, obese EENT: mucous membranes moist Neck: no JVD Respiratory: clear Cardiology: mid-systolic murmur, edema (3+), normal S1, normal S2 Gastrointestinal: no tenderness, no guarding Integumentary: warm and dry Neurologic: no asterixis, alert and oriented x3 Musculoskeletal: no erythema, no cyanosis Psychiatric: mood/affect appropriate - Lab 05/09/16 04:06 05/09/16 04:06 Most recent lab results Calcium 9.3 mg/dl (8.6-10.4) 05/09/16 04:06 Phosphorus 3.5 mg/dL (2.7-4.5) 05/09/16 04:06 Magnesium 2.3 mg/dL (1.6-2.5) 05/09/16 04:06 Assessment and Plan (1) CKD (chronic kidney disease), stage IV s.creatinine stable at 2.1 egfr is 21ml/min, Bun is in 60's no uremic symptoms Fluid status improving bicarb upto 35 likely from diuresis, however still with significant edema, so will continue bumex 3mg bid with metolazone once a day coreg at 3.125mg hs given low normal BP Anemia with low iron sat, will give another dose IV venofer today she will likely need PANCHITO Will do this if she agrees to come as outpt renal osteodystrophy: Phos improved, corrected calcium normal CHF/cirrhosis of liver Will follow along Thank you for giving me an opportunity to participate in Ms Arce's medical care, appreciate it Status: Acute
[2016-05-09] MEDS ORDERED: IRON SUCROSE COMPLEX 100 MG/5 ML VIAL IV ONE (12:06)
[2016-05-09] MEDS: FERROUS SULFATE 325 MG TABLET PO SCH ×2 (12:35→16:07)
[2016-05-09] MEDS: CARVEDILOL 3.125 MG TABLET PO SCH (19:49)
[2016-05-10] MEDS: diphenhydrAMINE 25 MG CAPSULE PO PRN ×2 (00:20→21:00)
[2016-05-10] MEDS: ACETAMINOPHEN 500 MG TABLET PO PRN ×2 (00:20→20:59)
[2016-05-10] MEDS: CALCIUM ACETATE 667 MG CAPSULE PO SCH ×3 (07:41→17:39)
[2016-05-10] MEDS: METOLAZONE 2.5 MG TABLET PO SCH (07:41)
[2016-05-10] MEDS: LEVOTHYROXINE 50 MCG TABLET PO SCH (07:42)
[2016-05-10] MEDS: PANTOPRAZOLE 40 MG VIAL IV SCH (09:14)
[2016-05-10] MEDS: BUMETANIDE 1 MG TABLET PO SCH ×2 (09:15→16:04)
[2016-05-10] MEDS: SPIRONOLACTONE 25 MG TABLET PO SCH (09:15)
[2016-05-10] MEDS: POLYETHYLENE GLYCOL 3350 17 GM PACKET PO SCH (09:48)
[2016-05-10] MEDS: APIXABAN 2.5 MG PO SCH ×2 (09:56→21:05)
[2016-05-10 10:19] LABS: ALT/SGPT 9 U/l (0-40); Albumin 3.5 gm/dL (3.2-5.2); Albumin/Globulin Ratio 1.3 (1.0-2.3); Alkaline Phosphatase 61 U/L (39-117); Bilirubin,Direct < 0.2 mg/dL (0.0-0.3); Blood Urea Nitrogen 64 mg/dl (8-23); Gamma Glutamyl Transpeptidase 15 U/L (5-36); Magnesium 2.3 mg/dL (1.6-2.5); Phosphorous 3.2 mg/dL (2.7-4.5); Uric Acid 13.1 mg/dL (2.5-8.0)
[2016-05-10 10:25] LABS: Mean Cell Volume 90.6 fL (80.0-100.0); Mean Corpuscular HGB Conc 33.7 g/dL (31.0-36.0); Mean Corpuscular Hemoglobin 30.6 pg (26.0-34.0); Platelet Count 165 K/mcL (140-440); RBC 3.02 M/mcL (4.00-5.20); Red Cell Distribution Width 13.8 % (11.5-14.5)
--- NOTE | 2016-05-10 11:10 | Internal Med Progress Note ---
Medical - PN: Subj Patient information: Note initiated : 05/10/16 at 11:10 am Service Date, if different from initiated Date: [] Patient: Corrina Arce a 89 y/o F admitted on 05/05/16 for Swelling, Increase Wt Gain/Anasarca, CHF. Chief Complaint: [] Interval history: Ms. Arce is a 89 year old female with multiple medical comorbidites presents to the ER today from [facility] for evaluation and treatment of generalized anasarca after failed outpatient treatment. I reviwed the note by Dr Hernandez, the patient notes that she has h/o intermittent anasarca, which responded to diuretics in the past. The patient notes that this episode started around Seven, when she fell and had a vertebral fracture. The patients baseline weight is 172 lbs, and she has been progressively gaining weight, associated with edema, shortness of breath on exertion, and PND. The patient was treated with oral diuretics which did not help much. The patient. The patient has a baseline creat of approx 2.7, which seems to have remained stable, The initial plan it seems was to admit the patient to the [facility] at the begining of the month, however due to lack of beds the patient had PICC line placed and IV lasix given. The patient it seems did not respond well to the lasix, and therefore was sent to [facility] ER for further management. In the ER she had right pleural effusion, which was drained by Radiology with good effect. The patient at presents feels better, but still has significant fatigue, edema. Denies any chest pain, palpitation, nausea or vomiting. The labs in the ER reviwed, anemia noted, creat of 2.6, electrolytes otherwise stable, EKG with IC RBBB, low voltage. 05/05-nephrology consulted. patient on higher doses of Lasix. Status post thoracentesis/paracentesis. 05/06 patient feeling a lot better. Her appetite is back. Denies active shortness of breath fever chills. No concerns per staff. discussed echo finding with diastolic dysfunction/moderate to severe pulmonary hypertension with pulmonary artery pressure 55. Patient appears to have a poor understanding of her disease process. No family members present for further discussions on goals of care. Echo moderate , concentric LVH the diastolic dysfunction, moderate MR and moderate LAE , US abdomen shows cirrhotic liver/ascites. 05/07- patient sitting in chair. Friend at bedside. No overnight events. Fever chills nausea vomiting. Feels a lot better. Able to talk in full sentences. Again discussed in depth overall clinical picture with liver and cardiac issues in including pulmonary hypertension and stage IV kidney disease. Patient will be a poor candidate for dialysis in light of advanced age. She has diuresed over 1999 negative however with high-dose IV diuretics which would not be possible to continue on discharge. patient will very likely regain all the volume and develop subsequent anasarca/pleural effusion/ascites. Also discussed about comfort care options and patient is contemplating on same. I would defer dialysis discussions nephrology. 05/08- patient doing better with improved diuresis managed by nephrology. able to ambulate and asymptomatic. Much improved anasarca however persistent lower extremity lymphedema. Compressive wraps. Improved appetite. Nonlabored breathing. sats stable on room air. anticipated additional 48 hours hospitalization for continued diuresis and transition to oral diuretic as per nephrology recommendations. 05/09- patient feeling better. Diuresing well. Improving lymphedema. Creatinine 2.1. IV iron per nephrology for anemia. No active concerns/fever chills nausea vomiting or telemetry events. Transfer to medical floor. Anticipate discharge in 48 hours 05/10- patient doing well. No overnight events. No concerns per staff. No fever chills nausea vomiting. Diuresing well. On oral diuretics. Creatinine 2.1. Alert oriented feels a lot better without evidence of shortness of breath. Improving lower extremity swelling. - Constitutional Vitals: Vital Signs Temp Pulse Resp BP Pulse Ox 98.1 F 84 18 114/70 95 05/10/16 06:32 05/10/16 03:55 05/10/16 06:32 05/10/16 06:32 05/10/16 08:00 Period Temp Pulse Resp BP Sys/Stovall Pulse Ox Last 24 Hr 97.6 F-98.7 F 76-90 18-24 111-121/66-70 92-99 Intake and Output 05/09/16 05/10/16 05/10/16 21:59 05:59 13:59 Intake Total 390 / 390 200 / 200 Output Total 800 / 800 550 / 550 Balance -410 / -410 -350 / -350 Weight 190 lb 6.4 oz Intake & Output: Intake & Output 05/09/16 05/10/16 05/10/16 21:59 05:59 13:59 Intake Total 390 / 390 200 / 200 Output Total 800 / 800 550 / 550 Balance -410 / -410 -350 / -350 Weight 190 lb 6.4 oz Intake: Oral 390 / 390 200 / 200 Output: Urine Catheter Amount 800 / 800 550 / 550 Other: Meal Dinner Percent of Meal Consumed 100% General appearance: cooperative, no acute distress Exam: alert oriented Nonlabored breathing lymphedema No anxiety Medical - PN: Obj Da - Labs CBC & Chem 7: 05/10/16 09:06 05/10/16 09:06 Labs: Abnormal Lab Results 05/10/16 05/10/16 05/09/16 09:06 09:06 04:06 RBC 3.02 L Hgb 9.2 L Hct 27.4 L RDW MPV 11.1 H Gran % Lymph % (Auto) [place] % (Auto) Lymph # Chloride 89 L 90 L Carbon Dioxide 35 H 35 H BUN 64 H 69 H Creatinine 2.1 H 2.1 H Glucose 170 H 115 H Uric Acid 13.1 H 13.1 H Total Protein 5.7 L 05/09/16 05/08/16 05/08/16 04:06 04:16 04:16 RBC 3.00 L 3.02 L Hgb 8.9 L 9.0 L Hct 28.1 L 28.0 L RDW 15.2 H MPV Gran % 80.7 H Lymph % (Auto) 5.9 L 10.0 L [place] % (Auto) 10.2 H 11.0 H Lymph # 0.4 L 0.6 L Chloride 92 L Carbon Dioxide 32 H BUN 68 H Creatinine 2.3 H Glucose Uric Acid 12.2 H Total Protein 5.8 L Meds: Medications Acetaminophen (Tylenol) 650 mg PO Q6HP PRN PRN Reason: PAIN/FEVER > 101 Acetaminophen (Tylenol) 500 mg PO HSP PRN PRN Reason: Insomnia Last Admin: 05/10/16 00:20 Dose: 500 mg Acetaminophen/Hydrocodone Bitart ([place] 5/325mg) 1 tab PO Q4HP PRN PRN Reason: Pain Albuterol/Ipratropium (Duoneb) 3 ml NEB Q6HRT PRN PRN Reason: Shortness Of Breath Or Wheezing Bisacodyl (Dulcolax) 10 mg PO DAILYP PRN PRN Reason: Constipation Bisacodyl (Dulcolax) 10 mg [place] DAILYP PRN PRN Reason: Constipation Bumetanide (Bumex) 3 mg PO BIDD [facility] Last Admin: 05/10/16 09:15 Dose: 3 mg Calcium Acetate (Phoslo) 667 mg PO TIDCC [facility] Last Admin: 05/10/16 07:41 Dose: 667 mg Carvedilol (Coreg) 3.125 mg PO HS [facility] Last Admin: 05/09/16 19:49 Dose: 3.125 mg Diphenhydramine HCl (Benadryl) 25 mg PO HSP PRN PRN Reason: Insomnia Last Admin: 05/10/16 00:20 Dose: 25 mg Ferrous Sulfate (Ferrous Sulfate) 325 mg PO BID@1200,1730 [facility] Last Admin: 05/09/16 16:07 Dose: 325 mg Heparin Sodium (Porcine) (Heparin Flush) 2 ml IV QSHIFT [facility] Last Admin: 05/10/16 09:19 Dose: 2 ml Levothyroxine Sodium (Synthroid) 50 mcg PO QAMAC [facility] Last Admin: 05/10/16 07:42 Dose: 50 mcg Metolazone (Zaroxolyn) 5 mg PO DAILY@0830 [facility] Last Admin: 05/10/16 07:41 Dose: 5 mg Naloxone HCl (Narcan) 0.1 mg IV Q2MIN PRN PRN Reason: Opiate Reversal Apixaban (Eliquis) 2 (.5 Mg Tab) 1 dose PO BID [facility] Last Admin: 05/10/16 09:56 Dose: 1 dose Ondansetron HCl (Zofran) 4 mg IV Q4HP PRN PRN Reason: Nausea And Vomiting Pantoprazole Sodium (Protonix) 40 mg IV QAMAC [facility] Last Admin: 05/10/16 09:14 Dose: 40 mg Polyethylene Glycol (Miralax) 17 gm PO DAILY [facility] Last Admin: 05/10/16 09:48 Dose: 17 gm Spironolactone (Aldactone) 25 mg PO DAILY [facility] Last Admin: 05/10/16 09:15 Dose: 25 mg Medical - PN: A/P - Time Spent With Patient Total time spent is greater than 50% in coordination of care (as documented) at patient's floor/unit and/or counseling patient: 15 - 24 minutes (1) Anasarca associated with disorder of kidney Status: Acute Assessment and plan: * Anasarca- significant clinical improvement with continued diuresis as per nephrology. underlying PA HTN/CKD/cirrhosis from congestive hepatopathy. S/p Thoracentesis/ paracentesis. 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 continue spironolactone/ diuretics(Bumex/metolazone) * History of atrial fibrillation rate controlled On Coreg. anticoagulation on CVA prophylaxis on apixiban * history of gout on colchicine * hypothyroidism on thyroxine Plan * continue anasarca/renal issues management nephrology * possible discharge in 24 hours * continue prior medical condition management as above Current Visit: Yes Medical - PN: Qual - VTE Deep Vein Thrombosis/Pulmonary Embolism Present on Admission: Yes
[2016-05-10] MEDS: FERROUS SULFATE 325 MG TABLET PO SCH ×2 (12:39→17:39)
[2016-05-10] MEDS ORDERED: IRON SUCROSE COMPLEX 100 MG/5 ML VIAL IV ONE (13:00)
[2016-05-10] MEDS: CARVEDILOL 3.125 MG TABLET PO SCH (20:59)
[2016-05-11] MEDS: PANTOPRAZOLE 40 MG VIAL IV SCH (07:20)
[2016-05-11] MEDS: LEVOTHYROXINE 50 MCG TABLET PO SCH (08:01)
[2016-05-11] MEDS: BUMETANIDE 1 MG TABLET PO SCH ×2 (08:04→16:06)
[2016-05-11] MEDS: POLYETHYLENE GLYCOL 3350 17 GM PACKET PO SCH (08:50)
[2016-05-11] MEDS: CALCIUM ACETATE 667 MG CAPSULE PO SCH ×3 (08:51→18:18)
[2016-05-11] MEDS: METOLAZONE 2.5 MG TABLET PO SCH (08:52)
[2016-05-11] MEDS: APIXABAN 2.5 MG PO SCH ×2 (08:54→20:18)
[2016-05-11] MEDS: SPIRONOLACTONE 25 MG TABLET PO SCH (08:54)
[2016-05-11 09:13] LABS: Mean Cell Volume 90.5 fL (80.0-100.0); Mean Corpuscular HGB Conc 34.3 g/dL (31.0-36.0); Mean Corpuscular Hemoglobin 31.1 pg (26.0-34.0); Platelet Count 134 K/mcL (140-440); RBC 2.68 M/mcL (4.00-5.20); Red Cell Distribution Width 13.6 % (11.5-14.5)
[2016-05-11 09:29] LABS: ALT/SGPT 10 U/l (0-40); Albumin 3.5 gm/dL (3.2-5.2); Albumin/Globulin Ratio 1.3 (1.0-2.3); Alkaline Phosphatase 63 U/L (39-117); Bilirubin,Direct < 0.2 mg/dL (0.0-0.3); Blood Urea Nitrogen 75 mg/dl (8-23); Gamma Glutamyl Transpeptidase 17 U/L (5-36); Magnesium 2.3 mg/dL (1.6-2.5); Phosphorous 3.1 mg/dL (2.7-4.5); Uric Acid 13.7 mg/dL (2.5-8.0)
[2016-05-11 09:43] LABS: Eosinophils % (Manual) 7 % (0-7); Lymphocytes % 4 % (15-49); Monocytes % (Manual) 9 % (1-9); Platelet Estimate NORMAL (NORMAL); RBC Morphology NORMAL (NORMAL); Segmented Neutrophils % 80 % (38-78)
--- NOTE | 2016-05-11 11:18 | Internal Med Progress Note ---
Medical - PN: Subj Patient information: Note initiated : 05/11/16 at 11:15 am Service Date, if different from initiated Date: [] Patient: Corrina Arce a 89 y/o F admitted on 05/05/16 for Swelling, Increase Wt Gain/Anasarca, CHF. Chief Complaint: [] Interval history: Ms. Arce is a 89 year old female with multiple medical comorbidites presents to the ER today from [facility] for evaluation and treatment of generalized anasarca after failed outpatient treatment. I reviwed the note by Dr Hernandez, the patient notes that she has h/o intermittent anasarca, which responded to diuretics in the past. The patient notes that this episode started around Seven, when she fell and had a vertebral fracture. The patients baseline weight is 172 lbs, and she has been progressively gaining weight, associated with edema, shortness of breath on exertion, and PND. The patient was treated with oral diuretics which did not help much. The patient. The patient has a baseline creat of approx 2.7, which seems to have remained stable, The initial plan it seems was to admit the patient to the [facility] at the begining of the month, however due to lack of beds the patient had PICC line placed and IV lasix given. The patient it seems did not respond well to the lasix, and therefore was sent to [facility] ER for further management. In the ER she had right pleural effusion, which was drained by Radiology with good effect. The patient at presents feels better, but still has significant fatigue, edema. Denies any chest pain, palpitation, nausea or vomiting. The labs in the ER reviwed, anemia noted, creat of 2.6, electrolytes otherwise stable, EKG with IC RBBB, low voltage. 05/05-nephrology consulted. patient on higher doses of Lasix. Status post thoracentesis/paracentesis. 05/06 patient feeling a lot better. Her appetite is back. Denies active shortness of breath fever chills. No concerns per staff. discussed echo finding with diastolic dysfunction/moderate to severe pulmonary hypertension with pulmonary artery pressure 55. Patient appears to have a poor understanding of her disease process. No family members present for further discussions on goals of care. Echo moderate , concentric LVH the diastolic dysfunction, moderate MR and moderate LAE , US abdomen shows cirrhotic liver/ascites. 05/07- patient sitting in chair. Friend at bedside. No overnight events. Fever chills nausea vomiting. Feels a lot better. Able to talk in full sentences. Again discussed in depth overall clinical picture with liver and cardiac issues in including pulmonary hypertension and stage IV kidney disease. Patient will be a poor candidate for dialysis in light of advanced age. She has diuresed over 1999 negative however with high-dose IV diuretics which would not be possible to continue on discharge. patient will very likely regain all the volume and develop subsequent anasarca/pleural effusion/ascites. Also discussed about comfort care options and patient is contemplating on same. I would defer dialysis discussions nephrology. 05/08- patient doing better with improved diuresis managed by nephrology. able to ambulate and asymptomatic. Much improved anasarca however persistent lower extremity lymphedema. Compressive wraps. Improved appetite. Nonlabored breathing. sats stable on room air. anticipated additional 48 hours hospitalization for continued diuresis and transition to oral diuretic as per nephrology recommendations. 05/09- patient feeling better. Diuresing well. Improving lymphedema. Creatinine 2.1. IV iron per nephrology for anemia. No active concerns/fever chills nausea vomiting or telemetry events. Transfer to medical floor. Anticipate discharge in 48 hours 05/10- patient doing well. No overnight events. No concerns per staff. No fever chills nausea vomiting. Diuresing well. On oral diuretics. Creatinine 2.1. Alert oriented feels a lot better without evidence of shortness of breath. Improving lower extremity swelling. 05/11-worsening creatinine/BUN. Managed by nephrology. No further recommendations from hospitalist service - Constitutional Vitals: Vital Signs Temp Pulse Resp BP Pulse Ox 97.7 F 83 20 109/49 94 05/11/16 07:35 05/11/16 09:00 05/11/16 07:35 05/11/16 07:35 05/11/16 07:40 Period Temp Pulse Resp BP Sys/Stovall Pulse Ox Last 24 Hr 97.4 F-98.7 F 83-93 16-24 107-117/49-72 92-100 Intake and Output 05/10/16 05/11/16 05/11/16 21:59 05:59 13:59 Intake Total 800 / 800 100 / 100 120 / 120 Output Total 650 / 650 450 / 450 Balance 150 / 150 -350 / -350 120 / 120 Weight 191 lb 8 oz Intake & Output: Intake & Output 05/10/16 05/11/16 05/11/16 21:59 05:59 13:59 Intake Total 800 / 800 100 / 100 120 / 120 Output Total 650 / 650 450 / 450 Balance 150 / 150 -350 / -350 120 / 120 Weight 191 lb 8 oz Intake: Oral 800 / 800 100 / 100 120 / 120 Output: Urine Catheter Amount 650 / 650 450 / 450 Other: Meal Dinner Breakfast Percent of Meal Consumed 100% # Bowel Movements 1 1 1 General appearance: cooperative, no acute distress Exam: alert oriented nonlabored breathing Medical - PN: Obj Da - Labs CBC & Chem 7: 05/11/16 08:33 05/11/16 08:33 Labs: Abnormal Lab Results 05/11/16 05/11/16 05/10/16 08:33 08:33 09:06 RBC 2.68 L Hgb 8.3 L Hct 24.3 L RDW Plt Count 134 L MPV Gran % Lymph % (Auto) Lake % (Auto) Lymph # Seg Neutrophils % 80 H Lymphocytes % 4 L Chloride 88 L 89 L Carbon Dioxide 37 H 35 H BUN 75 H 64 H Creatinine 2.3 H 2.1 H Glucose 112 H 170 H Uric Acid 13.7 H 13.1 H Total Protein 05/10/16 05/09/16 05/09/16 09:06 04:06 04:06 RBC 3.02 L 3.00 L Hgb 9.2 L 8.9 L Hct 27.4 L 28.1 L RDW 15.2 H Plt Count MPV 11.1 H Gran % 80.7 H Lymph % (Auto) 5.9 L Lake % (Auto) 10.2 H Lymph # 0.4 L Seg Neutrophils % Lymphocytes % Chloride 90 L Carbon Dioxide 35 H BUN 69 H Creatinine 2.1 H Glucose 115 H Uric Acid 13.1 H Total Protein 5.7 L Meds: Medications Acetaminophen (Tylenol) 650 mg PO Q6HP PRN PRN Reason: PAIN/FEVER > 101 Last Admin: 05/11/16 03:51 Dose: 325 mg Acetaminophen (Tylenol) 500 mg PO HSP PRN PRN Reason: Insomnia Last Admin: 05/10/16 20:59 Dose: 500 mg Acetaminophen/Hydrocodone Bitart ([place] 5/325mg) 1 tab PO Q4HP PRN PRN Reason: Pain Albuterol/Ipratropium (Duoneb) 3 ml NEB Q6HRT PRN PRN Reason: Shortness Of Breath Or Wheezing Bisacodyl (Dulcolax) 10 mg PO DAILYP PRN PRN Reason: Constipation Bisacodyl (Dulcolax) 10 mg [place] DAILYP PRN PRN Reason: Constipation Bumetanide (Bumex) 3 mg PO BIDD [facility] Last Admin: 05/11/16 08:04 Dose: 3 mg Calcium Acetate (Phoslo) 667 mg PO TIDCC [facility] Last Admin: 05/11/16 08:51 Dose: 667 mg Carvedilol (Coreg) 3.125 mg PO HS [facility] Last Admin: 05/10/16 20:59 Dose: 3.125 mg Diphenhydramine HCl (Benadryl) 25 mg PO HSP PRN PRN Reason: Insomnia Last Admin: 05/10/16 21:00 Dose: 25 mg Ferrous Sulfate (Ferrous Sulfate) 325 mg PO BID@1200,1730 [facility] Last Admin: 05/10/16 17:39 Dose: 325 mg Heparin Sodium (Porcine) (Heparin Flush) 2 ml IV QSHIFT [facility] Last Admin: 05/11/16 09:00 Dose: 2 ml Levothyroxine Sodium (Synthroid) 50 mcg PO QAMAC [facility] Last Admin: 05/11/16 08:01 Dose: 50 mcg Metolazone (Zaroxolyn) 5 mg PO DAILY@0830 [facility] Last Admin: 05/11/16 08:52 Dose: 5 mg Naloxone HCl (Narcan) 0.1 mg IV Q2MIN PRN PRN Reason: Opiate Reversal Apixaban (Eliquis) 2 (.5 Mg Tab) 1 dose PO BID [facility] Last Admin: 05/11/16 08:54 Dose: 1 dose Ondansetron HCl (Zofran) 4 mg IV Q4HP PRN PRN Reason: Nausea And Vomiting Pantoprazole Sodium (Protonix) 40 mg IV QAMAC [facility] Last Admin: 05/11/16 07:20 Dose: 40 mg Polyethylene Glycol (Miralax) 17 gm PO DAILY [facility] Last Admin: 05/11/16 08:50 Dose: 17 gm Spironolactone (Aldactone) 25 mg PO DAILY [facility] Last Admin: 05/11/16 08:54 Dose: 25 mg Medical - PN: A/P - Time Spent With Patient Total time spent is greater than 50% in coordination of care (as documented) at patient's floor/unit and/or counseling patient: 15 - 24 minutes (1) Anasarca associated with disorder of kidney Status: Acute Assessment and plan: * Anasarca- Gradual improvement with continued diuresis as per nephrology. however uptrending BUN and creatinine. underlying PA HTN/CKD/cirrhosis from congestive hepatopathy. S/p Thoracentesis/ paracentesis. * acute on chronic kidney disease stage IV-continue management per nephrology * Anemia managed by Nephrology on IV iron. 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 continue spironolactone/ diuretics(Bumex/metolazone) * History of atrial fibrillation rate controlled On Coreg. anticoagulation on CVA prophylaxis on apixiban * history of gout on colchicine * hypothyroidism on thyroxine Plan * Continue anasarca/renal issues management nephrology * no further recommendations from hospitalist service Current Visit: Yes Medical - PN: Qual - VTE Deep Vein Thrombosis/Pulmonary Embolism Present on Admission: Yes
[2016-05-11] MEDS: FERROUS SULFATE 325 MG TABLET PO SCH ×2 (12:31→18:18)
--- NOTE | 2016-05-11 15:48 | Nephrology Progress Note ---
Subjective Patient information: Note initiated : 05/11/16 at 3:45 pm Service Date, if different from initiated Date: [] Patient: Corrina Arce 89 y/o F admitted on 05/05/16 for Swelling, Increase Wt Gain/Anasarca, CHF. Chief Complaint: [] Principal diagnosis: anasarca Interval history: continued diuresis still with significant edema denies SOB, CP, dizziness no other issues Pertinent ROS: 10 point ROS done and pertinent positive and negative documented above Objective - Vital Signs Vital signs: Vital Signs Temp Pulse Pulse Resp BP Pulse Ox 05/11/16 12:00 97.6 F 92 H 22 115/58 98 05/11/16 09:00 83 05/11/16 07:40 94 05/11/16 07:35 97.7 F 83 20 109/49 98 05/11/16 03:59 98.7 F 92 H 20 112/56 92 05/10/16 23:59 98.0 F 93 H 22 117/72 94 05/10/16 20:00 98.2 F 92 H 24 110/69 97 05/10/16 16:00 97.8 F 89 16 115/69 97 Intake and Output 05/11/16 05/11/16 05/11/16 05:59 13:59 21:59 Intake Total 100 / 100 180 / 180 Output Total 450 / 450 Balance -350 / -350 180 / 180 Intake: Oral 100 / 100 180 / 180 Output: Urine Catheter Amount 450 / 450 Other: Meal Breakfast Lunch Percent of Meal Consumed 100% 100% # Bowel Movements 1 1 Weight 189 lb 14.4 oz Patient Weight 05/12/16 05:59 Weight 189 lb 14.4 oz Intake & Output: Intake & Output 05/11/16 05/11/16 05/11/16 05:59 13:59 21:59 Intake Total 100 / 100 180 / 180 Output Total 450 / 450 Balance -350 / -350 180 / 180 Weight 189 lb 14.4 oz Intake: Oral 100 / 100 180 / 180 Output: Urine Catheter Amount 450 / 450 Other: Meal Breakfast Lunch Percent of Meal Consumed 100% 100% # Bowel Movements 1 1 - General Appearance General appearance: appears started age EENT: mucous membranes moist Neck: JVD Respiratory: clear Cardiology: no rub, edema, normal S1, normal S2 Gastrointestinal: no tenderness, no guarding, no masses Integumentary: no rash, warm and dry Neurologic: no focal deficit, alert and oriented x3 Musculoskeletal: no erythema, no cyanosis Psychiatric: mood/affect appropriate - Lab 05/11/16 08:33 05/11/16 08:33 Most recent lab results Calcium 9.5 mg/dl (8.6-10.4) 05/11/16 08:33 Phosphorus 3.1 mg/dL (2.7-4.5) 05/11/16 08:33 Magnesium 2.3 mg/dL (1.6-2.5) 05/11/16 08:33 Assessment and Plan (1) CKD (chronic kidney disease), stage IV s.creatinine stable at 2.3 egfr is 18ml/min, Bun is in 60's no uremic symptoms Fluid status improving bicarb upto 37 likely from diuresis, however still with significant edema, so will continue bumex 3mg bid with metolazone once a day coreg at 3.125mg hs given low normal BP Anemia with low iron sat, will give another dose IV venofer today she will likely need PANCHITO Will do this if she agrees to come as outpt renal osteodystrophy: Phos improved, corrected calcium normal CHF/cirrhosis of liver Will follow along Thank you for giving me an opportunity to participate in Ms Arce's medical care, appreciate it Status: Acute
[2016-05-11] MEDS ORDERED: IRON SUCROSE COMPLEX 100 MG/5 ML VIAL IV ONE (15:49)
[2016-05-11] MEDS: CARVEDILOL 3.125 MG TABLET PO SCH (20:17)
[2016-05-12] MEDS: LEVOTHYROXINE 50 MCG TABLET PO SCH (07:36)
[2016-05-12] MEDS: BUMETANIDE 1 MG TABLET PO SCH ×2 (07:36→15:58)
[2016-05-12] MEDS: PANTOPRAZOLE 40 MG VIAL IV SCH (07:37)
[2016-05-12] MEDS: CALCIUM ACETATE 667 MG CAPSULE PO SCH ×3 (08:32→17:13)
[2016-05-12] MEDS: SPIRONOLACTONE 25 MG TABLET PO SCH (08:32)
[2016-05-12] MEDS: APIXABAN 2.5 MG PO SCH ×2 (08:33→20:41)
[2016-05-12] MEDS: METOLAZONE 2.5 MG TABLET PO SCH (08:33)
[2016-05-12] MEDS: POLYETHYLENE GLYCOL 3350 17 GM PACKET PO SCH (08:34)
[2016-05-12 09:48] LABS: Basophils # (Auto) 0 K/mcL (0.0-0.3); Basophils % (Auto) 0.3 % (0.0-2.0); Eosinophils # (Auto) 0.3 K/mcL (0.0-0.7); Eosinophils % (Auto) 4.2 % (0.0-7.0); Granulocytes % (Auto) 81.1 % (38.0-78.0); Lymphocytes # (Auto) 0.4 K/mcL (1.5-4.8); Lymphocytes % (Auto) 5.6 % (15.5-49.0); Mean Cell Volume 93.3 fL (80.0-100.0); Mean Corpuscular HGB Conc 31.7 g/dL (31.0-36.0); Mean Corpuscular Hemoglobin 29.6 pg (26.0-34.0); Monocytes # (Auto) 0.7 K/mcL (0.1-0.9); Monocytes % (Auto) 8.8 % (1.0-9.0); Platelet Count 160 K/mcL (140-440); RBC 2.85 M/mcL (4.00-5.20); Red Cell Distribution Width 14.8 % (11.5-14.5)
[2016-05-12 10:05] LABS: ALT/SGPT 9 U/l (0-40); Albumin 3.4 gm/dL (3.2-5.2); Albumin/Globulin Ratio 1.2 (1.0-2.3); Alkaline Phosphatase 64 U/L (39-117); Bilirubin,Direct < 0.2 mg/dL (0.0-0.3); Blood Urea Nitrogen 84 mg/dl (8-23); Gamma Glutamyl Transpeptidase 19 U/L (5-36); Magnesium 2.3 mg/dL (1.6-2.5); Phosphorous 3.4 mg/dL (2.7-4.5); Uric Acid 14.2 mg/dL (2.5-8.0)
--- NOTE | 2016-05-12 10:09 | Internal Med Progress Note ---
Medical - PN: Subj Patient information: Note initiated : 05/12/16 at 10:07 am Service Date, if different from initiated Date: [] Patient: Corrina Arce a 89 y/o F admitted on 05/05/16 for Swelling, Increase Wt Gain/Anasarca, CHF. Chief Complaint: [] Interval history: Ms. Arce is a 89 year old female with multiple medical comorbidites presents to the ER today from [facility] for evaluation and treatment of generalized anasarca after failed outpatient treatment. I reviwed the note by Dr Hernandez, the patient notes that she has h/o intermittent anasarca, which responded to diuretics in the past. The patient notes that this episode started around Seven, when she fell and had a vertebral fracture. The patients baseline weight is 172 lbs, and she has been progressively gaining weight, associated with edema, shortness of breath on exertion, and PND. The patient was treated with oral diuretics which did not help much. The patient. The patient has a baseline creat of approx 2.7, which seems to have remained stable, The initial plan it seems [facility], however due to lack of beds the patient had PICC line placed and IV lasix given. The patient it seems did not respond well to the lasix, and therefore was sent to [facility] ER for further management. In the ER she had right pleural effusion, which was drained by Radiology with good effect. The patient at presents feels better, but still has significant fatigue, edema. Denies any chest pain, palpitation, nausea or vomiting. The labs in the ER reviwed, anemia noted, creat of 2.6, electrolytes otherwise stable, EKG with IC RBBB, low voltage. 05/05-nephrology consulted. patient on higher doses of Lasix. Status post thoracentesis/paracentesis. 05/06 patient feeling a lot better. Her appetite is back. Denies active shortness of breath fever chills. No concerns per staff. discussed echo finding with diastolic dysfunction/moderate to severe pulmonary hypertension with pulmonary artery pressure 55. Patient appears to have a poor understanding of her disease process. No family members present for further discussions on goals of care. Echo moderate , concentric LVH the diastolic dysfunction, moderate MR and moderate LAE , US abdomen shows cirrhotic liver/ascites. 05/07- patient sitting in chair. Friend at bedside. No overnight events. Fever chills nausea vomiting. Feels a lot better. Able to talk in full sentences. Again discussed in depth overall clinical picture with liver and cardiac issues in including pulmonary hypertension and stage IV kidney disease. Patient will be a poor candidate for dialysis in light of advanced age. She has diuresed over 1999 negative however with high-dose IV diuretics which would not be possible to continue on discharge. patient will very likely regain all the volume and develop subsequent anasarca/pleural effusion/ascites. Also discussed about comfort care options and patient is contemplating on same. I would defer dialysis discussions nephrology. 05/08- patient doing better with improved diuresis managed by nephrology. able to ambulate and asymptomatic. Much improved anasarca however persistent lower extremity lymphedema. Compressive wraps. Improved appetite. Nonlabored breathing. sats stable on room air. anticipated additional 48 hours hospitalization for continued diuresis and transition to oral diuretic as per nephrology recommendations. 05/09- patient feeling better. Diuresing well. Improving lymphedema. Creatinine 2.1. IV iron per nephrology for anemia. No active concerns/fever chills nausea vomiting or telemetry events. Transfer to medical floor. Anticipate discharge in 48 hours 05/10- patient doing well. No overnight events. No concerns per staff. No fever chills nausea vomiting. Diuresing well. On oral diuretics. Creatinine 2.1. Alert oriented feels a lot better without evidence of shortness of breath. Improving lower extremity swelling. 05/11-worsening creatinine/BUN. Managed by nephrology. No further recommendations from hospitalist service 05/12- worsening BUN at 80. Grams 2.3. Continue management per nephrology. Patient has done well overnight without any significant shortness of breath or fever chills. Complains of worsening swelling. Foleys draining clear urine. Again no further recommendations from hospitalist service other than continuing home meds - Constitutional Vitals: Vital Signs Temp Pulse Resp BP Pulse Ox 98.0 F 83 14 112/69 94 05/12/16 07:01 05/12/16 07:01 05/12/16 07:01 05/12/16 07:01 05/12/16 07:53 Period Temp Pulse Resp BP Sys/Stovall Pulse Ox Last 24 Hr 97.4 F-98.1 F 77-96 14-24 112-122/58-70 94-98 Intake and Output 05/11/16 05/12/16 05/12/16 21:59 05:59 13:59 Intake Total 560 / 560 100 / 100 400 / 400 Output Total 450 / 450 400 / 400 Balance 110 / 110 -300 / -300 400 / 400 Weight 189 lb 8 oz Intake & Output: Intake & Output 05/11/16 05/12/16 05/12/16 21:59 05:59 13:59 Intake Total 560 / 560 100 / 100 400 / 400 Output Total 450 / 450 400 / 400 Balance 110 / 110 -300 / -300 400 / 400 Weight 189 lb 8 oz Intake: Oral 560 / 560 100 / 100 375 / 375 IV - Manual Only Output: Urine Catheter Amount 450 / 450 400 / 400 Other: Meal Dinner Breakfast Percent of Meal Consumed 100% 75% Feeding Ability Independent # Bowel Movements 1 General appearance: cooperative, no acute distress Exam: lower extremity lymphedema no anxiety Foleys draining clear urine Medical - PN: Obj Da - Labs CBC & Chem 7: 05/12/16 09:17 05/12/16 09:17 Labs: Abnormal Lab Results 05/12/16 05/12/16 05/11/16 09:17 09:17 08:33 RBC 2.85 L Hgb 8.4 L Hct 26.6 L RDW 14.8 H Plt Count MPV Gran % 81.1 H Lymph % (Auto) 5.6 L Lymph # 0.4 L Seg Neutrophils % Lymphocytes % Chloride 88 L 88 L Carbon Dioxide 35 H 37 H BUN 84 H 75 H Creatinine 2.3 H 2.3 H Glucose 164 H 112 H Uric Acid 14.2 H 13.7 H 05/11/16 05/10/16 05/10/16 08:33 09:06 09:06 RBC 2.68 L 3.02 L Hgb 8.3 L 9.2 L Hct 24.3 L 27.4 L RDW Plt Count 134 L MPV 11.1 H Gran % Lymph % (Auto) Lymph # Seg Neutrophils % 80 H Lymphocytes % 4 L Chloride 89 L Carbon Dioxide 35 H BUN 64 H Creatinine 2.1 H Glucose 170 H Uric Acid 13.1 H Meds: Medications Acetaminophen (Tylenol) 650 mg PO Q6HP PRN PRN Reason: PAIN/FEVER > 101 Last Admin: 05/11/16 03:51 Dose: 325 mg Acetaminophen (Tylenol) 500 mg PO HSP PRN PRN Reason: Insomnia Last Admin: 05/10/16 20:59 Dose: 500 mg Acetaminophen/Hydrocodone Bitart ([place] 5/325mg) 1 tab PO Q4HP PRN PRN Reason: Pain Albuterol/Ipratropium (Duoneb) 3 ml NEB Q6HRT PRN PRN Reason: Shortness Of Breath Or Wheezing Bisacodyl (Dulcolax) 10 mg PO DAILYP PRN PRN Reason: Constipation Bisacodyl (Dulcolax) 10 mg [place] DAILYP PRN PRN Reason: Constipation Bumetanide (Bumex) 3 mg PO BIDD [facility] Last Admin: 05/12/16 07:36 Dose: 3 mg Calcium Acetate (Phoslo) 667 mg PO TIDCC [facility] Last Admin: 05/12/16 08:32 Dose: 667 mg Carvedilol (Coreg) 3.125 mg PO HS [facility] Last Admin: 05/11/16 20:17 Dose: 3.125 mg Diphenhydramine HCl (Benadryl) 25 mg PO HSP PRN PRN Reason: Insomnia Last Admin: 05/10/16 21:00 Dose: 25 mg Ferrous Sulfate (Ferrous Sulfate) 325 mg PO BID@1200,1730 [facility] Last Admin: 05/11/16 18:18 Dose: 325 mg Heparin Sodium (Porcine) (Heparin Flush) 2 ml IV QSHIFT [facility] Last Admin: 05/12/16 07:37 Dose: 2 ml Levothyroxine Sodium (Synthroid) 50 mcg PO QAMAC [facility] Last Admin: 05/12/16 07:36 Dose: 50 mcg Metolazone (Zaroxolyn) 5 mg PO DAILY@0830 [facility] Last Admin: 05/12/16 08:33 Dose: 5 mg Naloxone HCl (Narcan) 0.1 mg IV Q2MIN PRN PRN Reason: Opiate Reversal Apixaban (Eliquis) 2 (.5 Mg Tab) 1 dose PO BID [facility] Last Admin: 05/12/16 08:33 Dose: 1 dose Ondansetron HCl (Zofran) 4 mg IV Q4HP PRN PRN Reason: Nausea And Vomiting Pantoprazole Sodium (Protonix) 40 mg IV QAMAC [facility] Last Admin: 05/12/16 07:37 Dose: 40 mg Polyethylene Glycol (Miralax) 17 gm PO DAILY [facility] Last Admin: 05/12/16 08:34 Dose: 17 gm Spironolactone (Aldactone) 25 mg PO DAILY [facility] Last Admin: 05/12/16 08:32 Dose: 25 mg Medical - PN: A/P - Time Spent With Patient Total time spent is greater than 50% in coordination of care (as documented) at patient's floor/unit and/or counseling patient: 15 - 24 minutes (1) Anasarca associated with disorder of kidney Status: Acute Assessment and plan: * Acute on chronic kidney disease stage IV-rising BUN. Managed by nephrology. * Anasarca- Gradual improvement with continued diuresis as per nephrology. however uptrending BUN and creatinine. underlying PA HTN/CKD/cirrhosis from congestive hepatopathy. S/p Thoracentesis/ paracentesis. * Anemia managed by Nephrology on IV iron. 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 continue spironolactone/ diuretics(Bumex/metolazone) * History of atrial fibrillation rate controlled On Coreg. anticoagulation on CVA prophylaxis on apixiban * history of gout on colchicine * hypothyroidism on thyroxine Plan * Continue anasarca/renal issues management nephrology * no changes since previous day Current Visit: Yes Medical - PN: Qual - VTE Deep Vein Thrombosis/Pulmonary Embolism Present on Admission: Yes
[2016-05-12] MEDS: FERROUS SULFATE 325 MG TABLET PO SCH ×2 (12:40→17:13)
[2016-05-12] MEDS ORDERED: DARBEPOETIN ALFA 100 MCG/ML VIAL IV ONE (16:41)
--- NOTE | 2016-05-12 16:46 | Nephrology Progress Note ---
Subjective Patient information: Note initiated : 05/12/16 at 4:41 pm Service Date, if different from initiated Date: [] Patient: Corrina Arce 89 y/o F admitted on 05/05/16 for Swelling, Increase Wt Gain/Anasarca, CHF. Chief Complaint: [] Principal diagnosis: anasarca Interval history: continues to have significant edema U/O has slowed down, no effective negative balance despite using metolazone and bumex 3mg bid renal function is getting worse no SOB, no CP no UREMIC SYMPTOMS, has good appetite ambulating well with PT Pertinent ROS: As documented above Objective - Vital Signs Vital signs: Vital Signs Temp Pulse Resp BP Pulse Ox 05/12/16 15:19 98.6 F 85 17 106/68 94 05/12/16 11:12 98.3 F 82 18 110/58 98 05/12/16 07:53 94 05/12/16 07:01 98.0 F 83 18 112/69 95 05/12/16 04:00 97.8 F 77 20 118/70 96 05/12/16 00:00 18 05/11/16 20:00 98.1 F 85 24 112/70 96 Intake and Output 05/12/16 05/12/16 05/12/16 05:59 13:59 21:59 Intake Total 100 / 100 400 / 400 330 / 330 Output Total 400 / 400 250 / 250 Balance -300 / -300 400 / 400 80 / 80 Intake: Oral 100 / 100 375 / 375 330 / 330 IV - Manual Only 25 / 25 Output: Urine Catheter Amount 400 / 400 250 / 250 Other: Meal Lunch Percent of Meal Consumed 25% Feeding Ability Independent # Voids 1 # Bowel Movements 1 Weight 189 lb 8 oz Patient Weight 05/13/16 05:59 Weight 189 lb 8 oz Intake & Output: Intake & Output 05/12/16 05/12/16 05/12/16 05:59 13:59 21:59 Intake Total 100 / 100 400 / 400 330 / 330 Output Total 400 / 400 250 / 250 Balance -300 / -300 400 / 400 80 / 80 Weight 189 lb 8 oz Intake: Oral 100 / 100 375 / 375 330 / 330 IV - Manual Only 25 / 25 Output: Urine Catheter Amount 400 / 400 250 / 250 Other: Meal Lunch Percent of Meal Consumed 25% Feeding Ability Independent # Voids 1 # Bowel Movements 1 - General Appearance General appearance: appears started age, obese EENT: mucous membranes moist Neck: JVD Respiratory: clear Cardiology: mid-systolic murmur, edema, normal S1, normal S2 Gastrointestinal: no tenderness, no guarding Integumentary: warm and dry, chronic venous stasis Neurologic: no asterixis, alert and oriented x3 Musculoskeletal: no erythema, no cyanosis Psychiatric: mood/affect appropriate - Lab 05/12/16 09:17 05/12/16 09:17 Most recent lab results Calcium 9.5 mg/dl (8.6-10.4) 05/12/16 09:17 Phosphorus 3.4 mg/dL (2.7-4.5) 05/12/16 09:17 Magnesium 2.3 mg/dL (1.6-2.5) 05/12/16 09:17 Assessment and Plan (1) CKD (chronic kidney disease), stage IV s.creatinine is trending up again BUN is also upto 84 bicarb is at 35 poor response to large doses of diuretics concerning discussed this with the pt will follow renal function if continues to get worse may need to cut back on diuretics discussed again option of dialysis, she will think about this Anemia: Hb is 8.4, will give aranesp as she has received IV iron loading dose CHF./cirrhosis of liver overall poor prognosis if renal function continues to get worse and patient does not want to do dialysis would go for hospice Thank you for giving me an opportunity to participate in Ms Arce's medical care, appreciate it Status: Acute
[2016-05-12 19:44] LABS: Creatinine,Urine Random 57.2 mg/dl
[2016-05-12] MEDS: CARVEDILOL 3.125 MG TABLET PO SCH (20:41)
[2016-05-13] MEDS: LEVOTHYROXINE 50 MCG TABLET PO SCH (06:52)
[2016-05-13] MEDS: PANTOPRAZOLE 40 MG VIAL IV SCH (06:52)
[2016-05-13] MEDS: BUMETANIDE 1 MG TABLET PO SCH ×3 (09:11→18:18)
[2016-05-13] MEDS: METOLAZONE 2.5 MG TABLET PO SCH (09:12)
[2016-05-13] MEDS: SPIRONOLACTONE 25 MG TABLET PO SCH (09:12)
[2016-05-13] MEDS: CALCIUM ACETATE 667 MG CAPSULE PO SCH ×3 (09:12→18:07)
[2016-05-13] MEDS: POLYETHYLENE GLYCOL 3350 17 GM PACKET PO SCH (09:13)
[2016-05-13] MEDS: APIXABAN 2.5 MG PO SCH ×2 (09:13→20:37)
[2016-05-13 11:08] LABS: ALT/SGPT 11 U/l (0-40); Albumin 3.6 gm/dL (3.2-5.2); Albumin/Globulin Ratio 1.6 (1.0-2.3); Alkaline Phosphatase 70 U/L (39-117); Bilirubin,Direct < 0.2 mg/dL (0.0-0.3); Blood Urea Nitrogen 86 mg/dl (8-23); Gamma Glutamyl Transpeptidase 18 U/L (5-36); Magnesium 2.3 mg/dL (1.6-2.5); Phosphorous 3.3 mg/dL (2.7-4.5); Uric Acid 14.3 mg/dL (2.5-8.0)
--- NOTE | 2016-05-13 11:58 | Internal Med Progress Note ---
Medical - PN: Subj Patient information: Note initiated : 05/13/16 at 11:55 am Service Date, if different from initiated Date: [] Patient: Corrina Arce a 89 y/o F admitted on 05/05/16 for Swelling, Increase Wt Gain/Anasarca, CHF. Chief Complaint: [] Interval history: Ms. Arce is a 89 year old female with multiple medical comorbidites presents to the ER today from Dr Mary green for evaluation and treatment of generalized anasarca after failed outpatient treatment. 05/05-nephrology consulted. patient on higher doses of Lasix. Status post thoracentesis/paracentesis. 05/06 patient feeling a lot better. Her appetite is back. Denies active shortness of breath fever chills. No concerns per staff. discussed echo finding with diastolic dysfunction/moderate to severe pulmonary hypertension with pulmonary artery pressure 55. Patient appears to have a poor understanding of her disease process. No family members present for further discussions on goals of care. Echo moderate , concentric LVH the diastolic dysfunction, moderate MR and moderate LAE , US abdomen shows cirrhotic liver/ascites. 05/07- patient sitting in chair. Friend at bedside. No overnight events. Fever chills nausea vomiting. Feels a lot better. Able to talk in full sentences. Again discussed in depth overall clinical picture with liver and cardiac issues in including pulmonary hypertension and stage IV kidney disease. Patient will be a poor candidate for dialysis in light of advanced age. She has diuresed over 1999 negative however with high-dose IV diuretics which would not be possible to continue on discharge. patient will very likely regain all the volume and develop subsequent anasarca/pleural effusion/ascites. Also discussed about comfort care options and patient is contemplating on same. I would defer dialysis discussions nephrology. 05/08- patient doing better with improved diuresis managed by nephrology. able to ambulate and asymptomatic. Much improved anasarca however persistent lower extremity lymphedema. Compressive wraps. Improved appetite. Nonlabored breathing. sats stable on room air. anticipated additional 48 hours hospitalization for continued diuresis and transition to oral diuretic as per nephrology recommendations. 05/09- patient feeling better. Diuresing well. Improving lymphedema. Creatinine 2.1. IV iron per nephrology for anemia. No active concerns/fever chills nausea vomiting or telemetry events. Transfer to medical floor. Anticipate discharge in 48 hours 05/10- patient doing well. No overnight events. No concerns per staff. No fever chills nausea vomiting. Diuresing well. On oral diuretics. Creatinine 2.1. Alert oriented feels a lot better without evidence of shortness of breath. Improving lower extremity swelling. 05/11-worsening creatinine/BUN. Managed by nephrology. No further recommendations from hospitalist service 05/12- worsening BUN at 80. Grams 2.3. Continue management per nephrology. Patient has done well overnight without any significant shortness of breath or fever chills. Complains of worsening swelling. Foleys draining clear urine. Again no further recommendations from hospitalist service other than continuing home meds 05/13- worsening BUN/creatinine. Nephrology undertaking discussions for treatment options. No further recommendations from hospitalist service - Constitutional Vitals: Vital Signs Temp Pulse Resp BP Pulse Ox 98.2 F 83 20 126/64 98 05/13/16 11:06 05/13/16 04:00 05/13/16 11:06 05/13/16 11:06 05/13/16 11:06 Period Temp Pulse Resp BP Sys/Stovall Pulse Ox Last 24 Hr 97.7 F-98.9 F 83-109 17-24 106-126/54-73 94-100 Intake and Output 05/12/16 05/13/16 05/13/16 21:59 05:59 13:59 Intake Total 330 / 330 125 / 125 180 / 180 Output Total 250 / 250 450 / 450 Balance 80 / 80 -325 / -325 180 / 180 Weight 191 lb Intake & Output: Intake & Output 05/12/16 05/13/16 05/13/16 21:59 05:59 13:59 Intake Total 330 / 330 125 / 125 180 / 180 Output Total 250 / 250 450 / 450 Balance 80 / 80 -325 / -325 180 / 180 Weight 191 lb Intake: Oral 330 / 330 125 / 125 180 / 180 Output: Urine Catheter Amount 250 / 250 450 / 450 Other: Meal Breakfast Percent of Meal Consumed 100% Feeding Ability Independent # Bowel Movements 1 Medical - PN: Obj Da - Labs CBC & Chem 7: 05/12/16 09:17 05/13/16 09:25 Labs: Abnormal Lab Results 05/13/16 05/12/16 05/12/16 09:25 09:17 09:17 RBC 2.85 L Hgb 8.4 L Hct 26.6 L RDW 14.8 H Plt Count Gran % 81.1 H Lymph % (Auto) 5.6 L Lymph # 0.4 L Seg Neutrophils % Lymphocytes % Chloride 88 L 88 L Carbon Dioxide 34 H 35 H BUN 86 H 84 H Creatinine 2.5 H 2.3 H Glucose 202 H 164 H Uric Acid 14.3 H 14.2 H 05/11/16 05/11/16 08:33 08:33 RBC 2.68 L Hgb 8.3 L Hct 24.3 L RDW Plt Count 134 L Gran % Lymph % (Auto) Lymph # Seg Neutrophils % 80 H Lymphocytes % 4 L Chloride 88 L Carbon Dioxide 37 H BUN 75 H Creatinine 2.3 H Glucose 112 H Uric Acid 13.7 H Meds: Medications Acetaminophen (Tylenol) 650 mg PO Q6HP PRN PRN Reason: PAIN/FEVER > 101 Last Admin: 05/11/16 03:51 Dose: 325 mg Acetaminophen (Tylenol) 500 mg PO HSP PRN PRN Reason: Insomnia Last Admin: 05/10/16 20:59 Dose: 500 mg Acetaminophen/Hydrocodone Bitart ([place] 5/325mg) 1 tab PO Q4HP PRN PRN Reason: Pain Albuterol/Ipratropium (Duoneb) 3 ml NEB Q6HRT PRN PRN Reason: Shortness Of Breath Or Wheezing Bisacodyl (Dulcolax) 10 mg PO DAILYP PRN PRN Reason: Constipation Bisacodyl (Dulcolax) 10 mg UT DAILYP PRN PRN Reason: Constipation Bumetanide (Bumex) 3 mg PO BIDD [facility] Last Admin: 05/13/16 09:11 Dose: 3 mg Calcium Acetate (Phoslo) 667 mg PO TIDCC [facility] Last Admin: 05/13/16 09:12 Dose: 667 mg Carvedilol (Coreg) 3.125 mg PO HS [facility] Last Admin: 05/12/16 20:41 Dose: 3.125 mg Diphenhydramine HCl (Benadryl) 25 mg PO HSP PRN PRN Reason: Insomnia Last Admin: 05/10/16 21:00 Dose: 25 mg Ferrous Sulfate (Ferrous Sulfate) 325 mg PO BID@1200,1730 [facility] Last Admin: 05/12/16 17:13 Dose: 325 mg Heparin Sodium (Porcine) (Heparin Flush) 2 ml IV QSHIFT [facility] Last Admin: 05/13/16 09:14 Dose: 2 ml Levothyroxine Sodium (Synthroid) 50 mcg PO QAMAC [facility] Last Admin: 05/13/16 06:52 Dose: 50 mcg Metolazone (Zaroxolyn) 5 mg PO DAILY@0830 [facility] Last Admin: 05/13/16 09:12 Dose: 5 mg Naloxone HCl (Narcan) 0.1 mg IV Q2MIN PRN PRN Reason: Opiate Reversal Apixaban (Eliquis) 2 (.5 Mg Tab) 1 dose PO BID [facility] Last Admin: 05/13/16 09:13 Dose: 1 dose Ondansetron HCl (Zofran) 4 mg IV Q4HP PRN PRN Reason: Nausea And Vomiting Pantoprazole Sodium (Protonix) 40 mg IV QAMAC [facility] Last Admin: 05/13/16 06:52 Dose: 40 mg Polyethylene Glycol (Miralax) 17 gm PO DAILY [facility] Last Admin: 05/13/16 09:13 Dose: 17 gm Spironolactone (Aldactone) 25 mg PO DAILY [facility] Last Admin: 05/13/16 09:12 Dose: 25 mg Medical - PN: A/P - Time Spent With Patient Total time spent is greater than 50% in coordination of care (as documented) at patient's floor/unit and/or counseling patient: less than 15 minutes (1) Anasarca associated with disorder of kidney Status: Acute Assessment and plan: * Acute on chronic kidney disease stage IV-worsening BUN/creatinine. Nephrology contemplating further treatment strategy * Anasarca- Continued diuresis as per nephrology. however uptrending BUN and creatinine. underlying PA HTN/CKD/cirrhosis from congestive hepatopathy. S/p Thoracentesis/ paracentesis. * Anemia managed by Nephrology on IV iron. 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 continue spironolactone/ diuretics(Bumex/metolazone) * History of atrial fibrillation rate controlled On Coreg. anticoagulation on CVA prophylaxis on apixiban * history of gout on colchicine * hypothyroidism on thyroxine Plan * Continue end-stage renal disease/anasarca management nephrology * no further recommendations from hospitalist service Current Visit: Yes Medical - PN: Qual - VTE Deep Vein Thrombosis/Pulmonary Embolism Present on Admission: Yes
[2016-05-13] MEDS: FERROUS SULFATE 325 MG TABLET PO SCH ×2 (12:10→18:08)
--- NOTE | 2016-05-13 16:19 | Nephrology Progress Note ---
Subjective Patient information: Note initiated : 05/13/16 at 4:16 pm Service Date, if different from initiated Date: [] Patient: Corrina Arce 89 y/o F admitted on 05/05/16 for Swelling, Increase Wt Gain/Anasarca, CHF. Chief Complaint: [] Principal diagnosis: anasarca Interval history: continues to have poor response to diuretics s.creatinine continues to trend upwards no SOB, CP, dizziness persistent edema no other overnight events Pertinent ROS: as above Objective - Vital Signs Vital signs: Vital Signs Temp Pulse Resp BP Pulse Ox 05/13/16 16:07 97.7 F 20 122/72 96 05/13/16 11:06 98.2 F 20 126/64 98 05/13/16 07:22 98 05/13/16 06:27 97.7 F 20 119/73 97 05/13/16 04:00 97.8 F 83 20 122/73 100 05/13/16 01:30 98.9 F 109 H 20 113/65 94 05/13/16 00:00 18 05/12/16 19:54 98.1 F 92 H 24 117/54 99 Intake and Output 05/13/16 05/13/16 05/13/16 05:59 13:59 21:59 Intake Total 125 / 125 660 / 660 715 / 715 Output Total 450 / 450 400 / 400 Balance -325 / -325 660 / 660 315 / 315 Intake: Oral 125 / 125 660 / 660 715 / 715 Output: Urine Catheter Amount 450 / 450 400 / 400 Other: Meal Lunch Percent of Meal Consumed 100% Feeding Ability Independent # Bowel Movements 1 Intake & Output: Intake & Output 05/13/16 05/13/16 05/13/16 05:59 13:59 21:59 Intake Total 125 / 125 660 / 660 715 / 715 Output Total 450 / 450 400 / 400 Balance -325 / -325 660 / 660 315 / 315 Intake: Oral 125 / 125 660 / 660 715 / 715 Output: Urine Catheter Amount 450 / 450 400 / 400 Other: Meal Lunch Percent of Meal Consumed 100% Feeding Ability Independent # Bowel Movements 1 - General Appearance General appearance: appears started age, obese EENT: mucous membranes moist Neck: no JVD Respiratory: clear Cardiology: mid-systolic murmur, edema, normal S1, normal S2 Gastrointestinal: no tenderness, no guarding Integumentary: no rash, warm and dry, chronic venous stasis Neurologic: no asterixis, alert and oriented x3 Musculoskeletal: no erythema, no cyanosis Psychiatric: mood/affect appropriate - Lab 05/12/16 09:17 05/13/16 09:25 Most recent lab results Calcium 9.7 mg/dl (8.6-10.4) 05/13/16 09:25 Phosphorus 3.3 mg/dL (2.7-4.5) 05/13/16 09:25 Magnesium 2.3 mg/dL (1.6-2.5) 05/13/16 09:25 Assessment and Plan (1) CKD (chronic kidney disease), stage IV s.creatinine is trending up again upto 2.5 BUN is also upto 84 bicarb is at 35 poor response to large doses of diuretics concerning discussed this with the pt does not want o initiate dialysis does not want to go to SNF I will increase her bumex to 4mg bid and ct with metolazone, she on 200mg of torsemide as outpt She will need a close follow up with PCP and with me she will call if any concerns if she does not want to pursue dialysis she would need to go on hospice Anemia: Hb is 8.4, s/p IV venofer and aranesp CHF./cirrhosis of liver overall poor prognosis if renal function continues to get worse and patient does not want to do dialysis would go for hospice Thank you for giving me an opportunity to participate in Ms Arce's medical care, appreciate it Status: Acute
[2016-05-13] MEDS: CARVEDILOL 3.125 MG TABLET PO SCH (20:37)
[2016-05-14 06:00] LABS: ALT/SGPT 10 U/l (0-40); Albumin 3.5 gm/dL (3.2-5.2); Albumin/Globulin Ratio 1.3 (1.0-2.3); Alkaline Phosphatase 67 U/L (39-117); Bilirubin,Direct < 0.2 mg/dL (0.0-0.3); Blood Urea Nitrogen 86 mg/dl (8-23); Gamma Glutamyl Transpeptidase 19 U/L (5-36); Magnesium 2.2 mg/dL (1.6-2.5); Phosphorous 3.1 mg/dL (2.7-4.5); Uric Acid 14.6 mg/dL (2.5-8.0)
[2016-05-14] MEDS: PANTOPRAZOLE 40 MG VIAL IV SCH (07:09)
[2016-05-14] MEDS: LEVOTHYROXINE 50 MCG TABLET PO SCH (07:09)
[2016-05-14] MEDS: BUMETANIDE 1 MG TABLET PO SCH (08:49)
[2016-05-14] MEDS: CALCIUM ACETATE 667 MG CAPSULE PO SCH (08:49)
[2016-05-14] MEDS: POLYETHYLENE GLYCOL 3350 17 GM PACKET PO SCH (08:52)
[2016-05-14] MEDS: SPIRONOLACTONE 25 MG TABLET PO SCH (09:17)
[2016-05-14] MEDS: METOLAZONE 2.5 MG TABLET PO SCH (09:18)
[2016-05-14] MEDS: APIXABAN 2.5 MG PO SCH (09:22)
--- NOTE | 2016-05-14 10:27 | Nephrology Progress Note ---
Subjective Patient information: Note initiated : 05/14/16 at 10:22 am Service Date, if different from initiated Date: [] Patient: Corrina Arce 89 y/o F admitted on 05/05/16 for Swelling, Increase Wt Gain/Anasarca, CHF. Chief Complaint: [] Principal diagnosis: anasarca Interval history: no further improvement in urine output despite increase bumex dose, also on metolazone continues to have LE edema, no SOB also has poor appetite no nausea, vomiting No other issues still refusing dialysis agrees to go to SNF Pertinent ROS: ABOVE Objective - Vital Signs Vital signs: Vital Signs Temp Pulse Pulse Resp BP Pulse Ox 05/14/16 08:00 80 91 H 05/14/16 07:10 94 05/14/16 07:03 98.0 F 79 20 121/75 93 05/14/16 04:00 98.2 F 91 H 24 129/74 94 05/14/16 00:00 98.3 F 103 H 24 119/74 93 05/13/16 20:00 98.1 F 106 H 24 120/73 96 05/13/16 16:07 97.7 F 20 122/72 96 05/13/16 11:06 98.2 F 20 126/64 98 Intake and Output 05/13/16 05/14/16 05/14/16 21:59 05:59 13:59 Intake Total 835 / 835 360 / 360 300 / 300 Output Total 400 / 400 600 / 600 Balance 435 / 435 -240 / -240 300 / 300 Intake: Oral 835 / 835 360 / 360 300 / 300 Output: Urine Catheter Amount 400 / 400 600 / 600 Other: Meal Dinner Breakfast Percent of Meal Consumed 75% 75% Feeding Ability Independent # Bowel Movements 1 1 Weight 192 lb Intake & Output: Intake & Output 05/13/16 05/14/16 05/14/16 21:59 05:59 13:59 Intake Total 835 / 835 360 / 360 300 / 300 Output Total 400 / 400 600 / 600 Balance 435 / 435 -240 / -240 300 / 300 Weight 192 lb Intake: Oral 835 / 835 360 / 360 300 / 300 Output: Urine Catheter Amount 400 / 400 600 / 600 Other: Meal Dinner Breakfast Percent of Meal Consumed 75% 75% Feeding Ability Independent # Bowel Movements 1 1 - General Appearance General appearance: appears started age, obese EENT: mucous membranes moist Neck: JVD Respiratory: clear Cardiology: mid-systolic murmur, no rub, edema, normal S1, normal S2 Gastrointestinal: no tenderness, no guarding Integumentary: warm and dry, chronic venous stasis Neurologic: no asterixis, alert and oriented x3 Musculoskeletal: no deformities, no erythema Psychiatric: mood/affect appropriate - Lab 05/12/16 09:17 05/14/16 04:45 Most recent lab results Calcium 9.8 mg/dl (8.6-10.4) 05/14/16 04:45 Phosphorus 3.1 mg/dL (2.7-4.5) 05/14/16 04:45 Magnesium 2.2 mg/dL (1.6-2.5) 05/14/16 04:45 Assessment and Plan (1) CKD (chronic kidney disease), stage IV Rrenal function improved to a s.creatinine 2.1-2.2 and then declined again Fena is more than 2.0 poor response to diuretics on bumex 4mg bid with metolazone mild uremic symptoms in form of poor appetite poor candidate for dialysis, also refusing the same, wants to talk to Dr Briceño before she makes her decision for further goals of care atleast agrees to go to SNF Would recommend discharging on bumex 4mg bid with metolazone 5mg in am would recheck BMP in 2-3 days also patient needs to have close follow up with PCP so she can decide goals of care if she decides to pursue dialysis please let us know, will arrange for the same advsied fluid restriction to 30-40 ounces she should be on low sodium diet Anemia: She is s/p IV venofer and also received aranesp Her Hb is holding steady CHF/cirrhosis of liver overall poor prognosis Would follow in clinic in 1-2 weeks if patient wishes to do so Status: Acute
--- NOTE | 2016-05-14 11:49 | Discharge Summary ---
Medical - DS: Prov Patient information: Note initiated : 05/14/16 at 11:46 am Service Date, if different from initiated Date: [] Patient: Corrina Arce 89 y/o F admitted on 05/05/16 for Swelling, Increase Wt Gain/Anasarca, CHF. Chief Complaint: [] Date of admission: 05/05/16 13:12 Discharge date: 05/14/16 Primary care physician: [f_Reg Prim Care Provider] Consults: 05/14/16 10:29 Consult to Physician [CONS] Routine Comment: Consulting Provider: [facility] Reason For Exam: Physician to Consult Medical - DS: Meds - Discharge Medications Prescriptions: Bumetanide [Bumex] 4 mg PO BIDD #30 tablet Metolazone [Zaroxolyn] 5 mg PO DAILY@0830 #30 tablet Active and Home Medications: Home Medications Carvedilol [Coreg] 6.75 mg PO HS 03/23/16 [History Confirmed 05/04/16 Last Taken 04/30/16] Febuxostat [Uloric] 40 mg PO DAILY 03/23/16 [History Confirmed 05/04/16 Last Taken 04/30/16] HYDROcodone/APAP 5/325MG [[place] 5/325Mg] 1 tab PO Q4HP PRN #14 tablet 03/23/16 [ Rx Confirmed 05/04/16 Last Taken 04/30/16] Omeprazole 20 mg PO DAILY 03/23/16 [History Confirmed 05/04/16 Last Taken ] Colchicine [Colcrys] 0.6 mg PO DAILY PRN 04/30/16 [History Confirmed 05/04/16 Last Taken 04/23/16] Ferrous Sulfate [Iron] 325 mg PO BID 04/30/16 [History Confirmed 05/04/16 Last Taken 04/30/16] Levothyroxine [Synthroid] 50 mcg PO DAILY 04/30/16 [History Confirmed 05/04/16 Last Taken 04/30/16] Magnesium Oxide [Magnesium] 250 mg PO WEEKLY 04/30/16 [History Confirmed Last Taken 04/30/16] Potassium Citrate [Urocit-K] 2.5 meq PO DAILY 04/30/16 [History Confirmed Last Taken 04/30/16] Vitamin D3 1,000 unit PO DAILY 04/30/16 [History Confirmed 05/04/16 Last Taken 04/30/16] Cyanocobalamin (Vitamin B-12) [Vitamin B12] 1,000 mcg PO DAILY 05/04/16 [ History Confirmed 05/04/16 Last Taken Unknown] Bumetanide [Bumex] 4 mg PO BIDD #30 tablet 05/14/16 [Rx Last Taken Unknown] Metolazone [Zaroxolyn] 5 mg PO DAILY@0830 #30 tablet 05/14/16 [Rx Last Taken Unknown] Medical - DS: Hosp Hospital course: DISCHARGE DIAGNOSIS * chronic kidney disease worsening to end-stage renal disease-managed by nephrology. Patient not responding to diuretics. Patient is a poor candidate for dialysis. she is being discharged to SNF with continued outpatient diuretics an outpatient follow-up with nephrology * Anasarca- clinically improved with aggressive diuresis/taurine paracentesis Etiology likely underlying PA HTN/ESRD * Anemia managed by Nephrology on IV iron. 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 anticoagulation on CVA prophylaxis on apixiban * history of gout on colchicine * hypothyroidism on thyroxine [employer] [facility] Ms. Arce is a 89 year old female with multiple medical comorbidites presents to the ER today from [facility] for evaluation and treatment of generalized anasarca after failed outpatient treatment. 05/05-nephrology consulted. patient on higher doses of Lasix. Status post thoracentesis/paracentesis. 05/06 patient feeling a lot better. Her appetite is back. Denies active shortness of breath fever chills. No concerns per staff. discussed echo finding with diastolic dysfunction/moderate to severe pulmonary hypertension with pulmonary artery pressure 55. Patient appears to have a poor understanding of her disease process. No family members present for further discussions on goals of care. Echo moderate , concentric LVH the diastolic dysfunction, moderate MR and moderate LAE , US abdomen shows cirrhotic liver/ascites. 05/07- patient sitting in chair. Friend at bedside. No overnight events. Fever chills nausea vomiting. Feels a lot better. Able to talk in full sentences. Again discussed in depth overall clinical picture with liver and cardiac issues in including pulmonary hypertension and stage IV kidney disease. Patient will be a poor candidate for dialysis in light of advanced age. She has diuresed over 1999 negative however with high-dose IV diuretics which would not be possible to continue on discharge. patient will very likely regain all the volume and develop subsequent anasarca/pleural effusion/ascites. Also discussed about comfort care options and patient is contemplating on same. I would defer dialysis discussions nephrology. 05/08- patient doing better with improved diuresis managed by nephrology. able to ambulate and asymptomatic. Much improved anasarca however persistent lower extremity lymphedema. Compressive wraps. Improved appetite. Nonlabored breathing. sats stable on room air. anticipated additional 48 hours hospitalization for continued diuresis and transition to oral diuretic as per nephrology recommendations. 05/09- patient feeling better. Diuresing well. Improving lymphedema. Creatinine 2.1. IV iron per nephrology for anemia. No active concerns/fever chills nausea vomiting or telemetry events. Transfer to medical floor. Anticipate discharge in 48 hours 05/10- patient doing well. No overnight events. No concerns per staff. No fever chills nausea vomiting. Diuresing well. On oral diuretics. Creatinine 2.1. Alert oriented feels a lot better without evidence of shortness of breath. Improving lower extremity swelling. 05/11-worsening creatinine/BUN. Managed by nephrology. No further recommendations from hospitalist service 05/12- worsening BUN at 80. Grams 2.3. Continue management per nephrology. Patient has done well overnight without any significant shortness of breath or fever chills. Complains of worsening swelling. Foleys draining clear urine. Again no further recommendations from hospitalist service other than continuing home meds 05/13- worsening BUN/creatinine. Nephrology undertaking discussions for treatment options. No further recommendations from hospitalist service 05/14-patient clinically unchanged. No overnight events. Worsening creatinine at 2.5 along with uremia. patient refused dialysis. Overall extremely poor prognosis. Discharge to SNF with continued diuretics and outpatient follow-up with nephrology. detailed discharge instructions including nephrology recommendations as below Discharge diagnosis: ESRD, anasarca - Time Spent with Patient Total time spent providing and/or coordinating discharge services: Medical - DS: Exam - Constitutional Vitals: Vital Signs Temp Pulse Pulse Pulse Resp BP Pulse Ox 05/14/16 09:59 79 05/14/16 08:00 98.0 F 80 79 20 121/75 93 05/14/16 07:10 94 05/14/16 07:03 98.0 F 79 20 121/75 93 05/14/16 04:00 98.2 F 91 H 24 129/74 94 05/14/16 00:00 98.3 F 103 H 24 119/74 93 05/13/16 20:00 98.1 F 106 H 24 120/73 96 05/13/16 16:07 97.7 F 20 122/72 96 Intake and Output 05/13/16 05/14/16 05/14/16 21:59 05:59 13:59 Intake Total 835 / 835 360 / 360 600 / 600 Output Total 400 / 400 600 / 600 Balance 435 / 435 -240 / -240 600 / 600 Intake: Oral 835 / 835 360 / 360 600 / 600 Output: Urine Catheter Amount 400 / 400 600 / 600 Other: Meal Dinner Breakfast Percent of Meal Consumed 75% 75% Feeding Ability Independent # Bowel Movements 1 1 2 Weight 192 lb Medical - DS: Data Labs on day of discharge: Labs from last 24 hours 05/14/16 04:45 Sodium 138 Potassium 4.1 Chloride 91 L Carbon Dioxide 35 H Anion Gap 12.0 BUN 86 H Creatinine 2.5 H GFR Calculation 16 Glucose 115 H Uric Acid 14.6 H Calcium 9.8 Phosphorus 3.1 Magnesium 2.2 Total Bilirubin 0.3 Direct Bilirubin < 0.2 GGT 19 AST 20 ALT 10 Alkaline Phosphatase 67 Lactate Dehydrogenase 168 Total Protein 6.2 Albumin 3.5 Globulin 2.7 Albumin/Globulin Ratio 1.3 Triglycerides 72 Medical - DS: A/P - Patient/Caregiver Discharge Instructions Activity: as per physical therapy, resume usual activities as tolerated Diet: Renal/Consistent Carbs Additional Instructions: Follow-up PCP in 5 days follow-up nephrology in 1 week I recommend SNF physician to check BMP n 2-3 days as a posthospital follow-up Continue following nephrology recommendations -Bumex 4 mg twice daily/metolazone 5 mg in a.m. -PCP follow-up forgoals of care decisions -Fluid restriction to 30-40 ounces a day -Low sodium diet Continue aggressive bowel regimen to prevent constipation Continue fall precautions daily weights measurements and if weight gain over 4 pounds at baseline or worsening shortness of breath - call primary care physician/nephrology Continue PT OT at SNF as tolerated All meals on chair sitting upright at 90 degrees to prevent aspiration Continue low sodium diet and activity as advised Discussed importance of medication adherence Please review medication list with patient prior to discharge discontinue PICC line/Foleys catheter prior to discharge Please schedule follow-up with PCP/Providers prior to discharge and provide printouts Portions of this chart may have been created with [employer] voice recognition software. Occasional wrong-word or ?sound-like? substitutions may have occurred due to the inherent limitations of voice recognition software. Please read the chart carefully and recognize, using context, where the substitutions have occurred. CC- PCP Prescriptions: Bumetanide [Bumex] 4 mg PO BIDD #30 tablet Metolazone [Zaroxolyn] 5 mg PO DAILY@0830 #30 tablet - Problem Maintenance (1) Anasarca associated with disorder of kidney Status: Acute - Follow up Plan Follow up with: Jc Hernandez MD [Primary Care Provider] - Disposition: [facility] Prognosis: Serious Rehab Potential: Undetermined I certify that the patient requires SNF services: Yes Overall status at discharge: patient is not back to baseline Medical - DS: Qual - VTE Deep Vein Thrombosis/Pulmonary Embolism Present on Admission: Yes
== END 2016-05-14 14:00 | DRG 682 ==
LOC: ICU 09:41 → ED 09:41 → ICU 19:40 → MEDSUR 05-09 10:26
PROVIDERS: ADMIT Internal Medicine; ATTEND Internal Medicine